=== PATIENT | female | born 1970 | race Caucasian/White ===

== ENCOUNTER 2016-03-26 15:26 | Inpatient (IN) | payer MEDICAID ==
[2016-03-26] MEDS ORDERED: IPRATROPIUM/ALBUTEROL 0.5-2.5 MG/3 ML AMPUL NEB ONE ×4 (15:42→16:33)
--- NOTE | 2016-03-26 15:42 | ER Document Report ---
ED Medical Screen (RME) - General Stated Complaint: DIFFICULTY BREATHING Time seen by provider: 15:38 Mode of Arrival: Ambulatory Information source: Patient Notes: 45 yo morbidly obese female non smoke, hypertensive, hypothyroid, prediabetes, started metformin 1000mg nightly since last week, c/o heavy chest last night with shortness of breath since this am. Started as cold in her head 2 weeks ago.. Seen by dr. shell who sent her here for chestxray and labs. No hx PE, CAD, astham, or COPD. TRAVEL OUTSIDE OF THE [place] IN LAST 30 DAYS: No - Related Data Allergies/Adverse Reactions: No Known Allergies Allergy (Verified 08/14/14 20:26) Past Medical History - Past Medical History Cardiac Medical History: Reports: Hx Hypertension Pulmonary Medical History: Reports: Hx Bronchitis Endocrine Medical History: Reports: Hx Hypothyroidism Psychiatric Medical History: Reports: Hx Depression Past Surgical History: Reports: Hx Adenoidectomy, Hx Myringotomy, Hx Tonsillectomy, Hx Tubal Ligation - Immunizations Immunizations up to date: Yes Hx Diphtheria, Pertussis, Tetanus Vaccination: Yes
[2016-03-26] MEDS ORDERED: ASPIRIN 81 MG TABLET, CHEWABLE PO ONE (15:43)
[2016-03-26 16:10] LABS: ABSOLUTE BASOPHILS # (AUTO) 0.1 10^3/uL (0.0-0.2); ABSOLUTE EOSINOPHILS # (AUTO) 0.2 10^3/uL (0.0-0.6); ABSOLUTE LYMPHOCYTES (AUTO) 2.1 10^3/uL (0.5-4.7); ABSOLUTE MONOCYTES (AUTO) 0.9 10^3/uL (0.1-1.4); ABSOLUTE NEUT (AUTO) 4.9 10^3/uL (1.7-8.2); BASOPHILS % (AUTO) 0.8 % (0-2); EOSINOPHILS % (AUTO) 2.3 % (0-6); HEMATOCRIT 43.9 % (36.0-47.0); HEMOGLOBIN 14.9 g/dL (12.0-15.5); HGB HCT DIFFERENCE 0.8; LYMPHOCYTES % (AUTO) 25.6 % (13-45); MEAN CORPUSCULAR HEMOGLOBIN 30.8 pg (27.0-33.4); MEAN CORPUSCULAR HGB CONC 33.9 g/dL (32.0-36.0); MEAN CORPUSCULAR VOLUME 91 fl (80-97); MONOCYTES % (AUTO) 10.9 % (3-13); RED BLOOD COUNT 4.84 10^6/uL (3.72-5.28); SEGMENTED NEUTROPHILS % (AUTO) 60.4 % (42-78); WHITE BLOOD COUNT 8.1 10^3/uL (4.0-10.5)
[2016-03-26 16:27] LABS: ALANINE AMINOTRANSFERASE 61 U/L (9-52); ALBUMIN 3.7 g/dL (3.5-5.0); ALKALINE PHOSPHATASE 88 U/L (38-126); ANION GAP 13 (5-19); ASPARTATE AMINO TRANSFERASE 46 U/L (14-36); BILIRUBIN,TOTAL 0.5 mg/dL (0.2-1.3); BLOOD UREA NITROGEN 24 mg/dL (7-20); CALCIUM 9.3 mg/dL (8.4-10.2); CARBON DIOXIDE 29 mmol/L (22-30); CHLORIDE 102 mmol/L (98-107); GLUCOSE 141 mg/dL (75-110); POTASSIUM 3.8 mmol/L (3.6-5.0); SODIUM 143.7 mmol/L (137-145)
[2016-03-26 16:28] LABS: CREATINE KINASE 53 U/L (30-135); TOTAL PROTEIN 7.6 g/dL (6.3-8.2)
[2016-03-26] MEDS ORDERED: PREDNISONE 20 MG TABLET PO ONE (16:32)
[2016-03-26 16:39] LABS: CREATINE KINASE MB 0.76 ng/mL (<4.55)
--- NOTE | 2016-03-26 16:39 | ER Document Report ---
ED General - General Chief Complaint: Breathing Difficulty Stated Complaint: DIFFICULTY BREATHING Mode of Arrival: Ambulatory Information source: Patient Notes: 45-year-old female presents with complaints of shortness of breath nonproductive cough that started yesterday. Patient notes she has had 2 weeks now of congestion or URI like symptoms, noted to have the shortness of breath yesterday which worsened today. Denies any current fevers or chills nausea vomiting or diarrhea TRAVEL OUTSIDE OF THE [place] IN LAST 30 DAYS: No - HPI Onset: Other - 2 week duration Onset/Duration: Persistent, Worse Quality of pain: No pain Severity: Mild Pain Level: 1 Associated symptoms: Body/muscle aches, Nonproductive cough, Shortness of breath Exacerbated by: Walking Relieved by: Denies Similar symptoms previously: No Recently seen / treated by doctor: No - Related Data Allergies/Adverse Reactions: No Known Allergies Allergy (Verified 08/14/14 20:26) Past Medical History - General Information source: Patient - Social History Smoking Status: Never Smoker Cigarette use (# per day): No Chew tobacco use (# tins/day): No Smoking Education Provided: No Family History: Reviewed & Not Pertinent, Arthritis, CAD, DM, Hypertension, Malignancy, Thyroid Disfunction Patient has suicidal ideation: No Patient has homicidal ideation: No - Past Medical History Cardiac Medical History: Reports: Hx Hypertension Pulmonary Medical History: Reports: Hx Bronchitis Endocrine Medical History: Reports: Hx Hypothyroidism Psychiatric Medical History: Reports: Hx Depression Past Surgical History: Reports: Hx Adenoidectomy, Hx Myringotomy, Hx Tonsillectomy, Hx Tubal Ligation - Immunizations Immunizations up to date: Yes Hx Diphtheria, Pertussis, Tetanus Vaccination: Yes Review of Systems - Review of Systems Notes: REVIEW OF SYSTEMS: CONSTITUTIONAL : Denies fever, chills, or sweats. Denies recent illness. EENT: Admits to sinus congestion CARDIOVASCULAR: Denies chest pain. Denies palpitations or racing or irregular heart beat. Denies ankle edema. RESPIRATORY: Admits to shortness breath difficulty breathing GASTROINTESTINAL: Denies abdominal pain or distention. Denies nausea, vomiting , or diarrhea. Denies blood in vomitus, stools, or per rectum. Denies black, tarry stools. Denies constipation. GENITOURINARY: Denies difficulty urinating, painful urination, burning, frequency, blood in urine, or discharge. FEMALE GENITOURINARY: Denies vaginal bleeding, heavy or abnormal periods, irregular periods. Denies vaginal discharge or odor. MUSCULOSKELETAL: Denies back or neck pain or stiffness. Denies joint pain or swelling. SKIN: Denies rash, lesions or sores. HEMATOLOGIC : Denies easy bruising or bleeding. LYMPHATIC: Denies swollen, enlarged glands. NEUROLOGICAL: Denies confusion or altered mental status. Denies passing out or loss of consciousness. Denies dizziness or lightheadedness. Denies headache. Denies weakness or paralysis or loss of use of either side. Denies problems with gait or speech. Denies sensory loss, numbness, or tingling. Denies seizures. PSYCHIATRIC: Denies anxiety or stress. Denies depression, suicidal ideation, or homicidal ideation. ALL OTHER SYSTEMS REVIEWED AND NEGATIVE. Dictation was performed using [employer] recognition software PHYSICAL EXAMINATION: GENERAL: Well-appearing, well-nourished and in no acute distress. HEAD: Atraumatic, normocephalic. EYES: Pupils equal round and reactive to light, extraocular movements intact, conjunctiva are normal. ENT: Nares patent, oropharynx clear without exudates. Moist mucous membranes. NECK: Normal range of motion, supple without lymphadenopathy LUNGS: Breath sounds clear to auscultation bilaterally and equal. No wheezes rales or rhonchi. Satting 94% on room air HEART: Regular rate and rhythm without murmurs ABDOMEN: Soft, nontender, nondistended abdomen. No guarding, no rebound. No masses appreciated. Female : deferred Musculoskeletal: Normal range of motion, no pitting or edema. No cyanosis. NEUROLOGICAL: Cranial nerves grossly intact. Normal speech, normal gait. Normal sensory, motor exams PSYCH: Normal mood, normal affect. SKIN: Warm, Dry, normal turgor, no rashes or lesions noted. Physical Exam - Vital signs Vitals: Temp Pulse Resp BP Pulse Ox 97.4 F 95 24 H 135/92 H 94 03/26/16 15:39 03/26/16 15:39 03/26/16 15:39 03/26/16 15:39 03/26/16 15:39 Course - Re-evaluation Re-evalutation: 03/26/16 16:39 Patient will be given 3 duo nebs, lab work imaging are pending. Patient will be ambulated to evaluate for exertional dyspnea 03/26/16 16:46 Patient denies any chest pain, however her troponin is noted to be above the negative range at 0.103, EKGs ordered immediately 03/26/16 17:05 EKG does note mild ischemic changes V4 V5 V6 I do not see any specific ST elevation, I will admit the patient to hospital service as pneumonia hypoxemia respiratory distress and coronary ischemia - Vital Signs Vital signs: Temp Pulse Resp BP Pulse Ox 97.4 F 95 24 H 135/92 H 94 03/26/16 15:39 03/26/16 15:39 03/26/16 15:39 03/26/16 15:39 03/26/16 16:30 - Laboratory Result Diagrams: 03/26/16 15:57 03/26/16 15:57 Laboratory results interpreted by me: 03/26/16 15:57 BUN 24 H Est GFR (Non-Af Amer) 54 L Glucose 141 H AST 46 H ALT 61 H - Diagnostic Test Radiology reviewed: Image reviewed, Reports reviewed - EKG Interpretation by Me EKG shows normal: Sinus rhythm, [place], Intervals, QRS Complexes When compared to previous EKG there are: Other - st depressions noted in V3-V6 Critical Care Note - Critical Care Note Total time excluding time spent on procedures (mins): 37 Comments: 37 minutes of critical care time spent in direct contact evaluating and reevaluating the patient, treating symptoms, reviewing labs and studies and speaking with family and consultants excluding any procedures Discharge - Discharge Clinical Impression: Ischemic heart disease, Hypoxemia Pneumonia Qualifiers: Pneumonia type: due to unspecified organism Laterality: right Lung location: lower lobe of lung Qualified Code(s): J18.1 - Lobar pneumonia, unspecified organism Condition: Stable Disposition: ADMITTED INPATIENT Admitting Provider: Hospitalist Unit Admitted: Telemetry
[2016-03-26 16:44] LABS: TROPONIN I 0.103 ng/mL
[2016-03-26] MEDS ORDERED: LEVOFLOXACIN 500 MG/D5W RTU 100 ML IV ONE (17:00)
--- NOTE | 2016-03-26 18:33 | PDOC H&P ---
History of Present Illness Admission Date/PCP: ANNE JIMENES Patient complains of: Shortness of breath History of Present Illness: CAROLANN STARKS is a 45 year old female presents with complaints of shortness of breath nonproductive cough that started yesterday. Patient notes she has had 2 weeks now of congestion or URI like symptoms, noted to have the shortness of breath yesterday which worsened today. Denies any current fevers or chills nausea vomiting or diarrhea Upon evaluation in the ED patient was found to be hypoxemic with O2 sat 93% on room air A chest x-ray showed an infiltrate EKG showed some mild ST depression on precordial leads new compared to an old EKG And the troponin was 0.1 Patient was admitted to telemetry unit for further evaluation and care Past Medical History Cardiac Medical History: Reports: Hypertension Pulmonary Medical History: Reports: Bronchitis Endocrine Medical History: Reports: Diabetes Mellitus Type 2, Hypothyroidism Psychiatric Medical History: Reports: Bipolar Disorder, Depression Past Surgical History Past Surgical History: Reports: Adenoidectomy, Tonsillectomy, Tubal Ligation Social History Information Source: Patient Smoking Status: Never Smoker Hx Recreational Drug Use: No Hx Prescription Drug Abuse: No - Advance Directive Resuscitation Status: Full Code Surrogate healthcare decision maker:: Mother Gina Family History Family History: Arthritis, CAD, DM, Hypertension, Malignancy, Thyroid Disfunction Parental Family History Reviewed: Yes - diabetes coronary artery disease hypertension malignancy Children Family History Reviewed: Yes - Bipolar disorder asthma Sibling(s) Family History Reviewed.: No Medication/Allergy Home Medications: Dextroamphetamine/Amphetamine [Adderall 20 mg Tablet] 20 mg PO DAILY 03/26/16 Enalapril Maleate [Enalapril Maleate] 5 mg PO DAILY 03/26/16 Fluoxetine HCl [Fluoxetine HCl] 20 mg PO DAILY 03/26/16 Hydrochlorothiazide [Hydrochlorothiazide] 25 mg PO DAILY 03/26/16 Levothyroxine Sodium [Synthroid] 125 mcg PO DAILY 03/26/16 Metformin HCl [Metformin HCl ER] 1,000 mg PO DAILY 03/26/16 Allergies/Adverse Reactions: No Known Allergies Allergy (Verified 08/14/14 20:26) Review of Systems Constitutional: ABSENT: chills, fever(s), headache(s), weight gain, weight loss Eyes: ABSENT: visual disturbances Ears: ABSENT: hearing changes Cardiovascular: PRESENT: as per HPI, dyspnea on exertion, orthropnea. ABSENT: chest pain, edema, palpitations Respiratory: PRESENT: as per HPI, cough, dyspnea. ABSENT: hemoptysis Gastrointestinal: ABSENT: abdominal pain, constipation, diarrhea, hematemesis, hematochezia, nausea, vomiting Genitourinary: ABSENT: dysuria, hematuria Musculoskeletal: ABSENT: joint swelling Integumentary: ABSENT: rash, wounds Neurological: ABSENT: abnormal gait, abnormal speech, confusion, dizziness, focal weakness, syncope Psychiatric: ABSENT: anxiety, depression, homidical ideation, suicidal ideation Endocrine: ABSENT: cold intolerance, heat intolerance, polydipsia, polyuria Hematologic/Lymphatic: ABSENT: easy bleeding, easy bruising Physical Exam Vital Signs: Temp Pulse Resp BP Pulse Ox 97.4 F 95 24 H 135/92 H 94 03/26/16 15:39 03/26/16 15:39 03/26/16 16:30 03/26/16 15:39 03/26/16 16:30 Intake & Output 03/25/16 03/26/16 03/27/16 00:59 00:59 00:59 Weight 177.4 kg General appearance: PRESENT: no acute distress, morbidly obese, well-developed, well-nourished Head exam: PRESENT: atraumatic, normocephalic Eye exam: PRESENT: conjunctiva pink, EOMI, PERRLA. ABSENT: scleral icterus Ear exam: PRESENT: normal external ear exam Mouth exam: PRESENT: moist, tongue midline Neck exam: ABSENT: carotid bruit, JVD, lymphadenopathy, thyromegaly Respiratory exam: PRESENT: decreased breath sounds, rhonchi, wheezes. ABSENT: rales Cardiovascular exam: PRESENT: RRR. ABSENT: diastolic murmur, rubs, systolic murmur Pulses: PRESENT: normal dorsalis pedis pul Vascular exam: PRESENT: normal capillary refill GI/Abdominal exam: PRESENT: normal bowel sounds, soft. ABSENT: distended, guarding, mass, organolmegaly, rebound, tenderness Rectal exam: PRESENT: deferred Extremities exam: PRESENT: full ROM. ABSENT: calf tenderness, clubbing, pedal edema Neurological exam: PRESENT: alert, awake, oriented to person, oriented to place , oriented to time, oriented to situation, CN II-XII grossly intact. ABSENT: motor sensory deficit Psychiatric exam: PRESENT: appropriate affect, normal mood. ABSENT: homicidal ideation, suicidal ideation Skin exam: PRESENT: dry, intact, warm. ABSENT: cyanosis, rash Results Laboratory Results: 03/26/16 15:57 03/26/16 15:57 03/26/16 03/26/16 15:57 15:57 WBC 8.1 RBC 4.84 Hgb 14.9 Hct 43.9 MCV 91 MCH 30.8 MCHC 33.9 RDW 14.0 Plt Count 157 Seg Neutrophils % 60.4 Lymphocytes % 25.6 Monocytes % 10.9 Eosinophils % 2.3 Basophils % 0.8 Absolute Neutrophils 4.9 Absolute Lymphocytes 2.1 Absolute Monocytes 0.9 Absolute Eosinophils 0.2 Absolute Basophils 0.1 Sodium 143.7 Potassium 3.8 Chloride 102 Carbon Dioxide 29 Anion Gap 13 BUN 24 H Creatinine 1.10 Est GFR ( Amer) > 60 Est GFR (Non-Af Amer) 54 L Glucose 141 H Calcium 9.3 Total Bilirubin 0.5 AST 46 H ALT 61 H Alkaline Phosphatase 88 Total Protein 7.6 Albumin 3.7 03/26/16 03/26/16 15:57 15:57 Creatine Kinase 53 CK-MB (CK-2) 0.76 Troponin I 0.103 EKG Comments: Normal sinus rhythm Every 2-[address] depression 1 mm in V4 V5 and V6 Impressions: Chest X-Ray 03/26/16 15:42 IMPRESSION: Early pneumonia right lower lobe. Assessment & Plan - Diagnosis (1) Morbid obesity with BMI of 50.0-59.9, adult Is this a current diagnosis for this admission?: Yes (2) Elevated troponin Is this a current diagnosis for this admission?: YesPlan: We will cycle troponins Patient may have an acute non-STEMI Noted that patient does have EKG changes as compared to an EKG performed in July 2015 We will treat the patient with Lipitor aspirin Lovenox at 1 mg per KG every 12 Elevated troponin may occur in acute pulmonary embolism A CTA of the chest be performed tonight (3) Cardiac ischemia Is this a current diagnosis for this admission?: YesPlan: Stress test be indicated when patient's condition is improved (4) Hypoxemia Is this a current diagnosis for this admission?: YesPlan: Acute hypoxemic respiratory failure; continue O2 supplementation Respiratory failure likely to be secondary to pneumonia (5) Pneumonia Qualifiers: Pneumonia type: due to unspecified organism Laterality: right Lung location: lower lobe of lung Qualified Code(s): J18.1 - Lobar pneumonia, unspecified organism Plan: Right lower lobe pneumonia continue Levaquin IV We'll obtain sputum for culture Continue nebs and steroids - Time Time Spent with patient: Patient was admitted to telemetry as an inpatient Time Spent: 50 to 70 Minutes - Inpatient Certification Based on my medical assessment, after consideration of the patient's comorbidities, presenting symptoms, or acuity I expect that the services needed warrant INPATIENT care.: Yes I certify that my determination is in accordance with my understanding of Medicare's requirements for reasonable and necessary INPATIENT services [42 CFR 412.3e].: Yes Medical Necessity: Need Close Monitoring Due to Risk of Patient Decompensation - I Not try When she did well. We document tried many times to whether we can NOW I TRIED TIME, Need For Continuous Telemetry Monitoring, Need for Nebulizer Therapy and Monitoring of Response
[2016-03-26] MEDS ORDERED: ASPIRIN 325 MG TABLET, ENT COATED PO ONE (19:00)
[2016-03-26] MEDS ORDERED: ENOXAPARIN SODIUM INJ 150 MG/1 ML DISP.SYRIN SUBCUT ONE (19:15)
[2016-03-26] MEDS ORDERED: ENALAPRIL MALEATE 5 MG TABLET PO ONE (19:15)
[2016-03-26 19:48] LABS: PROTHROMBIN TIME 13.1 SEC (11.4-15.4)
[2016-03-26] MEDS ORDERED: METOPROLOL TARTRATE PF/INJ 5 MG/5 ML SDV IV ONE (21:16)
--- NOTE | 2016-03-26 21:39 | EKG REPORT ---
SEVERITY:- ABNORMAL ECG - SINUS TACHYCARDIA PROBABLE INFERIOR INFARCT, AGE INDETERMINATE : Confirmed by: Lynette Boswell 26-Mar-2016 21:38:29
--- NOTE | 2016-03-26 21:43 | EKG REPORT ---
SEVERITY:- BORDERLINE ECG - SINUS RHYTHM BORDERLINE INFERIOR Q WAVES : Confirmed by: Lynette Boswell 26-Mar-2016 21:42:57
[2016-03-26] MEDS ORDERED: ATORVASTATIN CALCIUM 80 MG TABLET PO SCH (22:00)
[2016-03-26] MEDS: FAMOTIDINE 20 MG TABLET PO SCH (23:16)
[2016-03-27 07:04] LABS: ABSOLUTE BASOPHILS # (AUTO) 0.1 10^3/uL (0.0-0.2); ABSOLUTE LYMPHOCYTES (AUTO) 1.8 10^3/uL (0.5-4.7); ABSOLUTE MONOCYTES (AUTO) 0.5 10^3/uL (0.1-1.4); ABSOLUTE NEUT (AUTO) 7.9 10^3/uL (1.7-8.2); BASOPHILS % (AUTO) 0.6 % (0-2); HEMATOCRIT 43.3 % (36.0-47.0); HEMOGLOBIN 15.1 g/dL (12.0-15.5); LYMPHOCYTES % (AUTO) 17.2 % (13-45); MEAN CORPUSCULAR HEMOGLOBIN 31.3 pg (27.0-33.4); MEAN CORPUSCULAR HGB CONC 34.7 g/dL (32.0-36.0); MEAN CORPUSCULAR VOLUME 90 fl (80-97); MONOCYTES % (AUTO) 5.3 % (3-13); RED BLOOD COUNT 4.81 10^6/uL (3.72-5.28); RED CELL DISTRIBUTION WIDTH 14.4 % (11.5-14.0); SEGMENTED NEUTROPHILS % (AUTO) 76.9 % (42-78); WHITE BLOOD COUNT 10.3 10^3/uL (4.0-10.5)
[2016-03-27 07:25] LABS: ALANINE AMINOTRANSFERASE 47 U/L (9-52); ALBUMIN 3.7 g/dL (3.5-5.0); ALKALINE PHOSPHATASE 98 U/L (38-126); ANION GAP 13 (5-19); ASPARTATE AMINO TRANSFERASE 41 U/L (14-36); BILIRUBIN,TOTAL 0.4 mg/dL (0.2-1.3); BLOOD UREA NITROGEN 25 mg/dL (7-20); CALCIUM 9.6 mg/dL (8.4-10.2); CARBON DIOXIDE 24 mmol/L (22-30); CHLORIDE 102 mmol/L (98-107); CREATININE RESULT 0.88 mg/dL (0.52-1.25); Direct HDL 66 mg/dL (>40); GLUCOSE 187 mg/dL (75-110); POTASSIUM 4.5 mmol/L (3.6-5.0); SODIUM 138.8 mmol/L (137-145); TOTAL PROTEIN 7.7 g/dL (6.3-8.2); TRIGLYCERIDES 101 mg/dL (<150)
[2016-03-27 07:36] LABS: DIRECT LDL 128 mg/dL (<100)
[2016-03-27] MEDS ORDERED: ENOXAPARIN SODIUM INJ 40 MG/0.4 ML DISP.SYRIN SUBCUT SCH (08:00)
--- NOTE | 2016-03-27 08:56 | EKG REPORT ---
SEVERITY:- BORDERLINE ECG - SINUS RHYTHM PROBABLE LEFT ATRIAL ABNORMALITY : Confirmed by: Lynette Boswell 27-Mar-2016 08:55:43
[2016-03-27] MEDS ORDERED: PREDNISONE 20 MG TABLET PO SCH (10:00)
[2016-03-27] MEDS ORDERED: ASPIRIN 325 MG TABLET, ENT COATED PO SCH (10:00)
[2016-03-27] MEDS ORDERED: LEVOTHYROXINE SODIUM 0.05 MG TABLET PO SCH (10:00)
[2016-03-27] MEDS: ENOXAPARIN SODIUM INJ 150 MG/1 ML DISP.SYRIN SUBCUT SCH ×2 (10:40→22:22)
[2016-03-27] MEDS: ENALAPRIL MALEATE 5 MG TABLET PO SCH ×2 (10:40→17:24)
[2016-03-27] MEDS: LEVOFLOXACIN 750 MG TABLET PO SCH (10:42)
[2016-03-27] MEDS: HYDROCHLOROTHIAZIDE 25 MG TABLET PO SCH (10:43)
[2016-03-27] MEDS: FLUOXETINE HCL 20 MG CAPSULE PO SCH (10:43)
[2016-03-27] MEDS: FAMOTIDINE 20 MG TABLET PO SCH ×2 (10:44→22:22)
--- NOTE | 2016-03-27 15:39 | PDOC PROGRESS REPORT ---
Subjective Progress Note for:: 03/27/16 Subjective:: Patient is still dyspneic but appears more comfortable; patient is still hypoxemic with an O2 sat of 92% on room air No chest pain CTA of the chest done last evening showed acute pulmonary emboli Lovenox has been initiated on admission Physical Exam Vital Signs: Temp Pulse Resp BP Pulse Ox 97.2 F 70 19 129/78 H 92 03/27/16 03:37 03/27/16 07:00 03/27/16 03:37 03/27/16 03:37 03/27/16 03:37 Intake & Output 03/26/16 03/27/16 03/28/16 00:59 00:59 00:59 Intake Total 550 Balance 550 Weight 176.2 kg 176.2 kg General appearance: PRESENT: no acute distress, morbidly obese Head exam: PRESENT: atraumatic Eye exam: PRESENT: conjunctiva pink, EOMI, PERRLA. ABSENT: scleral icterus Neck exam: ABSENT: carotid bruit, JVD, lymphadenopathy, thyromegaly Respiratory exam: PRESENT: clear to auscultation [place]. ABSENT: rales, rhonchi, wheezes Cardiovascular exam: PRESENT: RRR. ABSENT: diastolic murmur, rubs, systolic murmur Pulses: PRESENT: normal dorsalis pedis pul GI/Abdominal exam: PRESENT: normal bowel sounds, soft. ABSENT: distended, guarding, mass, organolmegaly, rebound, tenderness Extremities exam: PRESENT: full ROM. ABSENT: calf tenderness, clubbing, pedal edema Neurological exam: PRESENT: alert, awake, oriented to person, oriented to place , oriented to time, oriented to situation, CN II-XII grossly intact. ABSENT: motor sensory deficit Results Laboratory Results: 03/27/16 06:33 03/27/16 06:33 03/26/16 03/27/16 03/27/16 19:30 06:33 06:33 WBC 10.3 RBC 4.81 Hgb 15.1 Hct 43.3 MCV 90 MCH 31.3 MCHC 34.7 RDW 14.4 H Plt Count 169 Seg Neutrophils % 76.9 Lymphocytes % 17.2 Monocytes % 5.3 Eosinophils % 0.0 Basophils % 0.6 Absolute Neutrophils 7.9 Absolute Lymphocytes 1.8 Absolute Monocytes 0.5 Absolute Eosinophils 0.0 Absolute Basophils 0.1 Sodium 138.8 Potassium 4.5 Chloride 102 Carbon Dioxide 24 Anion Gap 13 BUN 25 H Creatinine 0.88 Est GFR ( Amer) > 60 Est GFR (Non-Af Amer) > 60 Glucose 187 H Calcium 9.6 Total Bilirubin 0.4 AST 41 H ALT 47 Alkaline Phosphatase 98 Total Protein 7.7 Albumin 3.7 Triglycerides 101 Cholesterol 216.50 H LDL Cholesterol Direct 128 H VLDL Cholesterol 20.0 HDL Cholesterol 66 TSH 4.65 03/27/16 06:33 WBC RBC Hgb Hct MCV MCH MCHC RDW Plt Count Seg Neutrophils % Lymphocytes % Monocytes % Eosinophils % Basophils % Absolute Neutrophils Absolute Lymphocytes Absolute Monocytes Absolute Eosinophils Absolute Basophils Sodium Potassium Chloride Carbon Dioxide Anion Gap BUN Creatinine Est GFR ( Amer) Est GFR (Non-Af Amer) Glucose Calcium Total Bilirubin AST ALT Alkaline Phosphatase Total Protein Albumin Triglycerides Cholesterol LDL Cholesterol Direct VLDL Cholesterol HDL Cholesterol TSH 1.58 03/26/16 03/27/16 03/27/16 19:30 02:02 06:33 Troponin I 0.259 0.207 NT-Pro-B Natriuret Pep 532 H Impressions: Chest X-Ray 03/26/16 15:42 IMPRESSION: Early pneumonia right lower lobe. Chest/Abdomen CTA 03/26/16 18:06 IMPRESSION: Positive for pulmonary emboli. Assessment & Plan - Diagnosis (1) Morbid obesity with BMI of 50.0-59.9, adult Is this a current diagnosis for this admission?: Yes (2) Elevated troponin Is this a current diagnosis for this admission?: YesPlan: elevated troponin and EKG changes related to previous pulmonary emboli ; no need for further cardiac testing (3) Cardiac ischemia Is this a current diagnosis for this admission?: YesPlan: ST depression depression on precordial leads has normalized as patient's heart rate is slower patient certainly would benefit from cardiac workup has outpatient when clinically stable (4) Hypoxemia Is this a current diagnosis for this admission?: YesPlan: Secondary to pulmonary embolism still persistent Patient should be evaluated for portable O2 at home prior to discharge (5) Pneumonia Qualifiers: Pneumonia type: due to unspecified organism Laterality: right Lung location: lower lobe of lung Qualified Code(s): J18.1 - Lobar pneumonia, unspecified organism Is this a current diagnosis for this admission?: YesPlan: Continue Levaquin (6) Acute pulmonary embolism Qualifiers: Pulmonary embolism type: other Is this a current diagnosis for this admission?: YesPlan: Continue anticoagulation with Lovenox Patient may be switched to xarelto in am - Time Time Spent with patient: Patient may be discharged in 24 hours if she remains stable Time Spent with patient: 25-34 minutes - Inpatient Certification Based on my medical assessment, after consideration of the patient's comorbidities, presenting symptoms, or acuity I expect that the services needed warrant INPATIENT care.: Yes I certify that my determination is in accordance with my understanding of Medicare's requirements for reasonable and necessary INPATIENT services [42 CFR 412.3e].: Yes Medical Necessity: Need For Continuous Telemetry Monitoring
[2016-03-27 19:10] LABS: APPEARANCE,URINE CLEAR; BILIRUBIN,URINE NEGATIVE (NEGATIVE); GLUCOSE, URINE 150 mg/dL (NEGATIVE); KETONES,URINE NEGATIVE (NEGATIVE); LEUKOCYTE ESTERASE,URINE NEGATIVE (NEGATIVE); NITRITE,URINE NEGATIVE (NEGATIVE); PROTEIN,URINE NEGATIVE (NEGATIVE); URINE SPECIFIC GRAVITY 1.016; UROBILINOGEN,URINE NEGATIVE mg/dL (<2.0)
[2016-03-27] MEDS ORDERED: ATORVASTATIN CALCIUM 10 MG TABLET PO SCH (22:00)
[2016-03-27] MEDS ORDERED: ATORVASTATIN CALCIUM 80 MG TABLET PO SCH (22:00)
[2016-03-28] MEDS ORDERED: LEVOTHYROXINE SODIUM 0.025 MG TABLET PO SCH (10:00)
[2016-03-28] MEDS ORDERED: PREDNISONE 20 MG TABLET PO SCH (10:00)
[2016-03-28] MEDS ORDERED: LEVOTHYROXINE SODIUM 0.1 MG TABLET PO SCH (10:00)
[2016-03-28] MEDS ORDERED: ASPIRIN 325 MG TABLET, ENT COATED PO SCH (10:00)
[2016-03-28] MEDS: FAMOTIDINE 20 MG TABLET PO SCH (10:19)
[2016-03-28] MEDS: HYDROCHLOROTHIAZIDE 25 MG TABLET PO SCH (10:19)
[2016-03-28] MEDS: FLUOXETINE HCL 20 MG CAPSULE PO SCH (10:19)
[2016-03-28] MEDS: LEVOFLOXACIN 750 MG TABLET PO SCH (10:20)
[2016-03-28] MEDS: ENOXAPARIN SODIUM INJ 150 MG/1 ML DISP.SYRIN SUBCUT SCH (10:21)
[2016-03-28] MEDS: ENALAPRIL MALEATE 5 MG TABLET PO SCH (10:21)
[2016-03-28 11:07] VITALS: BP 127/73
--- NOTE | 2016-03-28 14:53 | PDOC DISCHARGE SUMMARY ---
General - Admit/Disc Date/PCP Admission Date/Primary Care Provider: 03/26/16 18:08 ANNE JIMENES Discharge Date: 03/28/16 - Discharge Diagnosis (1) Acute pulmonary embolism Is this a current diagnosis for this admission?: YesSummary: Patient quickly weaned off supplemental O2 and remained stable for at least the last 24 hours. She has tolerated anticoagulation without any bleeding consultations. She is agreeable to starting as a result of therapy at 15 mg twice a day for 3 weeks and then 20 mg daily thereafter. She was counseled on signs and symptoms to watch for and adverse reactions from this medication. All questions were asked and answered to the best my ability. She expressed no concerns about going home today. - Additional Information Resuscitation Status: Full Code Discharge Diet: Cardiac Discharge Activity: Activity As Tolerated Home Medications: Dextroamphetamine/Amphetamine [Adderall 20 mg Tablet] 20 mg PO DAILY 03/26/16 Fluoxetine HCl 20 mg PO DAILY 03/26/16 Hydrochlorothiazide 25 mg PO DAILY 03/26/16 Metformin HCl [Metformin HCl ER] 1,000 mg PO DAILY 03/26/16 Atorvastatin Calcium [Lipitor 10 mg Tablet] 10 mg PO QHS #30 tablet 03/28/16 Enalapril Maleate [Vasotec 5 mg Tablet] 5 mg PO BID #60 tablet 03/28/16 Levofloxacin [Levaquin 750 mg Tablet] 750 mg PO DAILY 5 Days 03/28/16 Levothyroxine Sodium [Synthroid 0.025 mg Tablet] 0.025 mg PO DAILY #30 tablet Prednisone [Deltasone 20 mg Tablet] 40 mg PO DAILY 5 Days 03/28/16 Rivaroxaban [Xarelto] 15 mg PO BID 21 Days 03/28/16 Rivaroxaban [Xarelto] 20 mg PO DAILY #30 tablet 03/28/16 History of Present Illness Patient complains of: shortness of breath History of Present Illness: CAROLANN STARKS is a 45 year old female Hospital Course Hospital Course: CAROLANN STARKS is a 45 year old female presents with complaints of shortness of breath nonproductive cough that started yesterday. Patient notes she has had 2 weeks now of congestion or URI like symptoms, noted to have the shortness of breath yesterday which worsened today. Denies any current fevers or chills nausea vomiting or diarrhea Upon evaluation in the ED patient was found to be hypoxemic with O2 sat 93% on room air A chest x-ray showed an infiltrate EKG showed some mild ST depression on precordial leads new compared to an old EKG And the troponin was 0.1 Patient was admitted to telemetry unit for further evaluation and care Physical Exam Vital Signs: Temp Pulse Resp BP Pulse Ox 97.5 F 65 20 127/73 H 98 03/28/16 11:33 03/28/16 11:33 03/28/16 11:33 03/28/16 11:33 03/28/16 11:33 Intake & Output 03/27/16 03/28/16 03/29/16 06:59 06:59 06:59 Intake Total 550 2170 360 Output Total 4 Balance 550 2166 360 Weight 176.2 kg 176 kg Results Laboratory Results: 03/27/16 06:33 03/27/16 06:33 03/27/16 18:47 Urine Color STRAW Urine Appearance CLEAR Urine pH 5.0 Ur Specific Bath 1.016 Urine Protein NEGATIVE Urine Glucose (UA) 150 H Urine Ketones NEGATIVE Urine Blood NEGATIVE Urine Nitrite NEGATIVE Ur Leukocyte Esterase NEGATIVE Urine WBC (Auto) 1 Urine RBC (Auto) 0 03/26/16 03/27/16 03/27/16 19:30 02:02 06:33 Troponin I 0.259 0.207 NT-Pro-B Natriuret Pep 532 H Impressions: Chest X-Ray 03/26/16 15:42 IMPRESSION: Early pneumonia right lower lobe. Chest/Abdomen CTA 03/26/16 18:06 IMPRESSION: Positive for pulmonary emboli. Venous Doppler Study 03/27/16 12:12 IMPRESSION: NO EVIDENCE DVT OR SVT IN EITHER LEG.
[2016-03-28 16:08] LABS: URINE BARBITURATES SCREEN NEGATIVE; URINE METHADONE SCREEN NEGATIVE; URINE PHENCYCLIDINE SCREEN NEGATIVE
== END 2016-03-28 11:39 | disposition home or self-care (01) | DRG 175 ==
LOC: ER 15:26 → EH 18:08 → 5 20:51
PROVIDERS: ADMIT Emergency Medicine; ATTEND Emergency Medicine
DX: I26.99 Other pulmonary embolism without acute cor pulmonale (principal); J18.9 Pneumonia, unspecified organism; J96.01 Acute respiratory failure with hypoxia; Z68.44 Body mass index [BMI] 60.0-69.9, adult; I10 Essential (primary) hypertension; E11.9 Type 2 diabetes mellitus without complications; E03.9 Hypothyroidism, unspecified; R74.8 Abnormal levels of other serum enzymes; E66.01 Morbid (severe) obesity due to excess calories; F31.9 Bipolar disorder, unspecified; Z83.3 Family history of diabetes mellitus; Z82.49 Family history of ischemic heart disease and other diseases of the circulatory system; Z80.9 Family history of malignant neoplasm, unspecified; Z98.51 Tubal ligation status
CPT/HCPCS: 36415; 71020; 71275; 80053; 80061; 80307; 81001; 82550; 82553; 83036; 83880; 84443; 84484; 85025; 85610; 85730; 87040; 93005; 93010; 93970; 96365; 99291; J1956; J3490; J7512; J7620

== ENCOUNTER 2016-03-29 12:29 | Emergency (ER) | payer MEDICAID ==
--- NOTE | 2016-03-29 13:43 | EKG REPORT ---
SEVERITY:- ABNORMAL ECG - SINUS RHYTHM NONSPECIFIC INTRAVENTRICULAR CONDUCTION DELAY BORDERLINE INFERIOR Q WAVES : Confirmed by: Jodi Jaramillo MD 29-Mar-2016 13:43:09
[2016-03-29 13:50] LABS: ABSOLUTE LYMPHOCYTES (AUTO) 2.1 10^3/uL (0.5-4.7); ABSOLUTE MONOCYTES (AUTO) 0.6 10^3/uL (0.1-1.4); ABSOLUTE NEUT (AUTO) 9.9 10^3/uL (1.7-8.2); BASOPHILS % (AUTO) 0.3 % (0-2); HEMATOCRIT 45.3 % (36.0-47.0); HEMOGLOBIN 15.3 g/dL (12.0-15.5); HGB HCT DIFFERENCE 0.6; LYMPHOCYTES % (AUTO) 16.7 % (13-45); MEAN CORPUSCULAR HEMOGLOBIN 30.5 pg (27.0-33.4); MEAN CORPUSCULAR HGB CONC 33.8 g/dL (32.0-36.0); MEAN CORPUSCULAR VOLUME 90 fl (80-97); MONOCYTES % (AUTO) 4.5 % (3-13); RED BLOOD COUNT 5.02 10^6/uL (3.72-5.28); RED CELL DISTRIBUTION WIDTH 14.3 % (11.5-14.0); SEGMENTED NEUTROPHILS % (AUTO) 78.5 % (42-78); WHITE BLOOD COUNT 12.6 10^3/uL (4.0-10.5)
[2016-03-29 13:59] LABS: ALANINE AMINOTRANSFERASE 33 U/L (9-52); ALBUMIN 4.2 g/dL (3.5-5.0); ALKALINE PHOSPHATASE 84 U/L (38-126); ANION GAP 14 (5-19); ASPARTATE AMINO TRANSFERASE 24 U/L (14-36); BILIRUBIN,TOTAL 0.7 mg/dL (0.2-1.3); BLOOD UREA NITROGEN 28 mg/dL (7-20); CALCIUM 9.4 mg/dL (8.4-10.2); CARBON DIOXIDE 27 mmol/L (22-30); CHLORIDE 100 mmol/L (98-107); CREATINE KINASE 29 U/L (30-135); CREATININE RESULT 1.09 mg/dL (0.52-1.25); GLUCOSE 196 mg/dL (75-110); POTASSIUM 3.7 mmol/L (3.6-5.0); SODIUM 141.2 mmol/L (137-145); TOTAL PROTEIN 7.7 g/dL (6.3-8.2)
[2016-03-29 14:21] LABS: CREATINE KINASE MB 0.48 ng/mL (<4.55); TROPONIN I < 0.012 ng/mL
--- NOTE | 2016-03-29 14:43 | ER Document Report ---
ED Respiratory Problem - General Chief Complaint: Shortness Of Breath Stated Complaint: TROUBLE BREATHING Notes: This is a 45-year-old female was recently hospitalized for pneumonia and PEs who was just discharged last night. She states this morning was her first time taking her Xarelto and prednisone together. She had been on Lovenox [facility]. She states a few minutes after taking the medications this morning she felt as if her heart was racing and she was flushed. She states she is mildly short of breath. Symptoms have subsided spontaneously and she states she is feeling pretty much at her baseline at this time. She does state she still has some mild shortness of breath but it is improved from when she was in the hospital. She states she did not want to come to the hospital by her mother made her call EMS TRAVEL OUTSIDE OF THE [place] IN LAST 30 DAYS: No - Related Data Allergies/Adverse Reactions: No Known Allergies Allergy (Verified 08/14/14 20:26) Past Medical History - General Information source: Patient - Social History Smoking Status: Unknown if Ever Smoked Frequency of alcohol use: None Drug Abuse: None Lives with: Family Family History: Arthritis, CAD, DM, Hypertension, Malignancy, Thyroid Disfunction - Past Medical History Cardiac Medical History: Reports: Hx Hypertension Pulmonary Medical History: Reports: Hx Bronchitis Endocrine Medical History: Reports: Hx Diabetes Mellitus Type 2, Hx Hypothyroidism Psychiatric Medical History: Reports: Hx Bipolar Disorder, Hx Depression Past Surgical History: Reports: Hx Adenoidectomy, Hx Myringotomy, Hx Tonsillectomy, Hx Tubal Ligation - Immunizations Immunizations up to date: Yes Hx Diphtheria, Pertussis, Tetanus Vaccination: Yes Review of Systems - Review of Systems Constitutional: denies: Fever EENT: denies: Throat pain, Difficulty swallowing Cardiovascular: See HPI. denies: Syncope Respiratory: See HPI Gastrointestinal: denies: Vomiting Genitourinary: denies: Flank pain Musculoskeletal: denies: Ankle swelling Skin: denies: Rash Neurological/Psychological: denies: Weakness, Numbness, Tingling Physical Exam - Vital signs Vitals: Resp Pulse Ox 19 98 03/29/16 12:33 03/29/16 12:33 - Notes Notes: GENERAL: Pleasant, talkative obese female in no acute respiratory distress, vital signs are normal HEAD: Atraumatic, normocephalic. EYES: Pupils equal round and reactive to light, extraocular movements intact, sclera anicteric, conjunctiva are normal. ENT: nares patent, oropharynx clear without exudates. Moist mucous membranes. NECK: Normal range of motion, supple without lymphadenopathy or JVD. LUNGS: Breath sounds clear to auscultation bilaterally and equal. No wheezes rales or rhonchi. HEART: Regular rate and rhythm without murmurs, rubs or gallops. ABDOMEN: Soft, nontender, normoactive bowel sounds. No guarding, no rebound. No masses appreciated. EXTREMITIES: Normal range of motion, no pitting or edema. No clubbing or cyanosis. NEUROLOGICAL: Cranial nerves II through XII grossly intact. Normal speech, normal gait. PSYCH: Normal mood, normal affect. SKIN: Warm, Dry, normal turgor, no rashes or lesions noted. Course - Re-evaluation Re-evalutation: 03/29/16 19:43 Patient is hemodynamically stable here. She is not hypoxic. She is not tachycardic. She is normotensive. She is well-appearing and talkative. She states she is feeling better. Labs are reassuring. Chest x-ray is improved from when she was the hospital. Patient is comfortable going home on her current medication regimen. I do not suspect that she's had any further new significant PE today. - Vital Signs Vital signs: Temp Pulse Resp BP Pulse Ox 97.5 F 73 19 125/81 96 03/29/16 12:35 03/29/16 12:35 03/29/16 13:02 03/29/16 14:02 03/29/16 14:02 - Laboratory Result Diagrams: 03/29/16 12:35 03/29/16 12:35 Laboratory results interpreted by me: 03/29/16 03/29/16 12:35 12:35 WBC 12.6 H RDW 14.3 H Seg Neutrophils % 78.5 H Absolute Neutrophils 9.9 H BUN 28 H Est GFR (Non-Af Amer) 55 L Glucose 196 H Creatine Kinase 29 L Discharge - Discharge Clinical Impression: Heart palpitations Condition: Good Disposition: HOME, SELF-CARE Additional Instructions: your labs are stable and chest x ray shows interval improvement in pneumonia. Your vital signs are stable. Monitor your symptoms at home and return if you have any persistent shortness of breath, feel faint, have unusual pain, develop a fever or have any new concerns. Referrals: ANNE JIMENES [Primary Care Provider] - Follow up as needed
[2016-03-29 14:59] VITALS: BP 125/81
== END 2016-03-29 15:08 | disposition home or self-care (01) ==
LOC: ER 12:29
DX: R00.2 Palpitations (principal); I26.99 Other pulmonary embolism without acute cor pulmonale; J18.9 Pneumonia, unspecified organism; I10 Essential (primary) hypertension; E11.9 Type 2 diabetes mellitus without complications
CPT/HCPCS: 36415; 71020; 80053; 82550; 82553; 84484; 85025; 93005; 93010; 99285

== ENCOUNTER 2016-04-07 03:06 | Emergency (ER) | payer MEDICAID ==
--- NOTE | 2016-04-07 04:15 | ER Document Report ---
ED General - General Time seen by provider: 04:10 Mode of Arrival: Ambulatory Information source: Patient TRAVEL OUTSIDE OF THE [place] IN LAST 30 DAYS: No - HPI Onset: Other <JACKY CHAVARRIA - Last Filed: 04/07/16 04:39> <JUAN JOSE FRANKEL - Last Filed: 04/07/16 05:47> - General Chief Complaint: Cough Stated Complaint: COUGH Notes: Patient is a 45-year-old female presenting to the emergency department with complaints of cough, back pain, and chest pain. Patient states that she recently was admitted to the hospital for pneumonia and an increased troponin level. Patient states that while in the hospital they found blood clots in her lungs and was placed on a blood thinner. Patient states that she is also taking a steroid since she was in the hospital and finished taking her steroid on Sunday. Patient's states that her cough went away but has now returned patient states that she has coughed so much that she is having some back pain that radiates on the left side of her back and moves around her shoulder to her throat. Patient states her pain is exacerbated with movement or deep breathing. Patient states that it hurts to breathe and non-that she is short of breath. Patient's has been coughing for about 2+ weeks. Patient with history of hypertension and hypothyroidism. Patient has no known allergies. ( JACKY CHAVARRIA) - Related Data Allergies/Adverse Reactions: No Known Allergies Allergy (Verified 08/14/14 20:26) Past Medical History - General Information source: Patient Last Menstrual Period: 03/26/16 - Social History Smoking Status: Never Smoker Cigarette use (# per day): No Chew tobacco use (# tins/day): No Frequency of alcohol use: None Drug Abuse: None Family History: Reviewed & Not Pertinent, Arthritis, CAD, DM, Hypertension, Malignancy, Thyroid Disfunction - Past Medical History Cardiac Medical History: Reports: Hx Hypertension Pulmonary Medical History: Reports: Hx Bronchitis Endocrine Medical History: Reports: Hx Diabetes Mellitus Type 2, Hx Hypothyroidism Psychiatric Medical History: Reports: Hx Bipolar Disorder, Hx Depression Past Surgical History: Reports: Hx Adenoidectomy, Hx Myringotomy, Hx Tonsillectomy, Hx Tubal Ligation - Immunizations Immunizations up to date: Yes Hx Diphtheria, Pertussis, Tetanus Vaccination: Yes <JACKY CHAVARRIA - Last Filed: 04/07/16 04:39> Review of Systems - Review of Systems Constitutional: No symptoms reported EENT: No symptoms reported Cardiovascular: See HPI, Chest pain Respiratory: See HPI, Cough Gastrointestinal: No symptoms reported Genitourinary: No symptoms reported Female Genitourinary: No symptoms reported Musculoskeletal: See HPI, Back pain Skin: No symptoms reported Hematologic/Lymphatic: No symptoms reported Neurological/Psychological: No symptoms reported -: Yes All other systems reviewed and negative <JACKY CHAVARRIA - Last Filed: 04/07/16 04:39> Physical Exam - Vital signs Interpretation: Normal - General General appearance: Appears well, Alert In distress: Mild - HEENT Head: Normocephalic, Atraumatic Eyes: Normal Pupils: PERRL Mucous membranes: Normal - Respiratory Respiratory status: No respiratory distress Chest status: Nontender Breath sounds: Normal. No: Wheezing Chest palpation: Normal - Cardiovascular Rhythm: Regular Heart sounds: Normal auscultation Murmur: Yes - Abdominal Inspection: Obese Distension: No distension Bowel sounds: Normal Tenderness: Nontender Organomegaly: No organomegaly - Back Back: Normal, Tender - tenderness to palpation over the left medial scalpula - Extremities General upper extremity: Normal inspection, Normal ROM, Normal strength General lower extremity: Normal inspection, Normal ROM, Normal strength - Neurological Neuro grossly intact: Yes Cognition: Normal Orientation: AAOx4 [place] Coma Scale Eye Opening: Spontaneous [place] Coma Scale Verbal: Oriented [place] Coma Scale Motor: Obeys Commands [place] Coma Scale Total: 15 Speech: Normal - Psychological Associated symptoms: Normal affect, Normal mood - Skin Skin Temperature: Warm Skin Moisture: Dry <JACKY CHAVARRIA - Last Filed: 04/07/16 04:39> Course <JACKY CHAVARRIA - Last Filed: 04/07/16 04:39> - Diagnostic Test Radiology reviewed: Reports reviewed <JUAN JOSE FRANKEL - Last Filed: 04/07/16 05:47> - Re-evaluation Re-evalutation: 04/07/16 Patient with no evidence for pneumonia today. Patient is currently on blood thinners for PE. Patient is not having any difficult breathing. Patient states that she had a coughing spell and then had reproducible upper left back pain with movement. Reproducible tenderness to palpation. Chest x-ray with no acute findings. Patient is stable vitals. Patient will be discharged home with pain medication and is to follow-up with her doctor. Agrees with this plan. Return if any worsening or concerning symptoms. No chest pain. (JUAN JOSE FRANKEL) - Vital Signs Vital signs: Temp Pulse Resp BP Pulse Ox 97.8 F 69 16 125/78 97 04/07/16 05:09 04/07/16 05:09 04/07/16 05:09 04/07/16 05:09 04/07/16 05:09 (JACKY CHAVARRIA) (JUAN JOSE FRANKEL) Discharge <JACKY CHAVARRIA - Last Filed: 04/07/16 04:39> <JUAN JOSE FRANKEL - Last Filed: 04/07/16 05:47> - Discharge Clinical Impression: Cough Muscle strain of left upper back Qualifiers: Encounter type: initial encounter Qualified Code(s): S29.012A - Strain of muscle and tendon of back wall of thorax, initial encounter Condition: Stable Disposition: HOME, SELF-CARE Instructions: Muscle Strain ([facility]) Prescriptions: Carisoprodol [Soma] 350 mg PO DAILYP PRN #10 tablet PRN Reason: Referrals: JESSICA SALGADO MD [Primary Care Provider] - Follow up in 3-5 days Scribe Attestation: 04/07/16 05:47 I personally performed the services described in the documentation, reviewed and edited the documentation which was dictated to the scribe in my presence, and it accurately records my words and actions. (JUAN JOSE FRANKEL) Scribe Documentation - Scribe Written by Scrfabián:: Jacky Chavarria 04:27 04/07/16 acting as scribe for :: Makeda <JACKY CHAVARRIA - Last Filed: 04/07/16 04:39>
[2016-04-07] MEDS ORDERED: HYDROCODONE/ACETAMINOPHEN 5-325 MG 6 TAB/DSPK PO PRN (04:20)
[2016-04-07 05:12] VITALS: BP 125/78
== END 2016-04-07 05:13 | disposition home or self-care (01) ==
LOC: ER 03:06
DX: S29.012A Strain of muscle and tendon of back wall of thorax, initial encounter (principal); X58.XXXA Exposure to other specified factors, initial encounter; R05 Cough; I26.99 Other pulmonary embolism without acute cor pulmonale; M54.9 Dorsalgia, unspecified; R07.1 Chest pain on breathing; I10 Essential (primary) hypertension; E11.9 Type 2 diabetes mellitus without complications; Z79.01 Long term (current) use of anticoagulants; Z87.01 Personal history of pneumonia (recurrent)
CPT/HCPCS: 71020; 99283

== ENCOUNTER 2016-06-13 12:21 | Emergency (ER) | payer MEDICAID ==
--- NOTE | 2016-06-13 13:00 | ER Document Report ---
ED Medical Screen (RME) - General Stated Complaint: SHORTNESS OF BREATH Notes: Patient reports shortness of breath since Sunday. She has been off Xarelto for 2 weeks. Sent to the emergency room by her doctor because of previous PE in March. Patient restarted Xarelto yesterday. I have greeted and performed a rapid initial assessment of this patient. A comprehensive ED assessment and evaluation of the patient, analysis of test results and completion of the medical decision making process will be conducted by additional ED providers. TRAVEL OUTSIDE OF THE [place] IN LAST 30 DAYS: No - Related Data Allergies/Adverse Reactions: No Known Allergies Allergy (Verified 08/14/14 20:26) Past Medical History - Past Medical History Cardiac Medical History: Reports: Hx Hypertension Pulmonary Medical History: Reports: Hx Bronchitis Endocrine Medical History: Reports: Hx Diabetes Mellitus Type 2, Hx Hypothyroidism Renal/ Medical History: Denies: Hx Peritoneal Dialysis Psychiatric Medical History: Reports: Hx Bipolar Disorder, Hx Depression Past Surgical History: Reports: Hx Adenoidectomy, Hx Myringotomy, Hx Tonsillectomy, Hx Tubal Ligation - Immunizations Immunizations up to date: Yes Hx Diphtheria, Pertussis, Tetanus Vaccination: Yes Physical Exam - Respiratory Respiratory status: No respiratory distress Breath sounds: Normal
[2016-06-13 13:56] LABS: ALANINE AMINOTRANSFERASE 38 U/L (9-52); ALKALINE PHOSPHATASE 99 U/L (38-126); ANION GAP 15 (5-19); ASPARTATE AMINO TRANSFERASE 28 U/L (14-36); BILIRUBIN,DIRECT 0.3 mg/dL (0.0-0.4); BILIRUBIN,TOTAL 0.5 mg/dL (0.2-1.3); BLOOD UREA NITROGEN 16 mg/dL (7-20); CALCIUM 9.6 mg/dL (8.4-10.2); CARBON DIOXIDE 23 mmol/L (22-30); CHLORIDE 104 mmol/L (98-107); CREATINE KINASE 53 U/L (30-135); CREATININE RESULT 0.99 mg/dL (0.52-1.25); GLUCOSE 123 mg/dL (75-110); SODIUM 141.8 mmol/L (137-145); TOTAL PROTEIN 7.9 g/dL (6.3-8.2)
[2016-06-13 14:08] LABS: CREATINE KINASE MB 0.55 ng/mL (<4.55); TROPONIN I < 0.012 ng/mL
[2016-06-13 14:12] LABS: ABSOLUTE EOSINOPHILS # (AUTO) 0.2 10^3/uL (0.0-0.6); ABSOLUTE LYMPHOCYTES (AUTO) 2.9 10^3/uL (0.5-4.7); ABSOLUTE MONOCYTES (AUTO) 0.8 10^3/uL (0.1-1.4); ABSOLUTE NEUT (AUTO) 5.1 10^3/uL (1.7-8.2); BASOPHILS % (AUTO) 0.5 % (0-2); HEMATOCRIT 41.8 % (36.0-47.0); HEMOGLOBIN 14.4 g/dL (12.0-15.5); HGB HCT DIFFERENCE 1.4; LYMPHOCYTES % (AUTO) 32.8 % (13-45); MEAN CORPUSCULAR HEMOGLOBIN 30.9 pg (27.0-33.4); MEAN CORPUSCULAR HGB CONC 34.5 g/dL (32.0-36.0); MEAN CORPUSCULAR VOLUME 90 fl (80-97); MONOCYTES % (AUTO) 8.5 % (3-13); RED BLOOD COUNT 4.67 10^6/uL (3.72-5.28); RED CELL DISTRIBUTION WIDTH 13.4 % (11.5-14.0); SEGMENTED NEUTROPHILS % (AUTO) 56.2 % (42-78)
--- NOTE | 2016-06-13 20:03 | ER Document Report ---
ED Respiratory Problem - General Chief Complaint: Shortness Of Breath Stated Complaint: SHORTNESS OF BREATH Time seen by provider: 19:59 Mode of Arrival: Ambulatory Information source: Patient TRAVEL OUTSIDE OF THE [place] IN LAST 30 DAYS: No - HPI Patient complains to provider of: Other - Dyspnea on exertion Onset: Last week Duration: Continuous Quality of pain: Achy Severity: Mild Context: Other - History of PE Short of Breath: Mild Chest pain/discomfort: Worse with deep breaths Associated symptoms: Chest pain/discomfort Similar symptoms previously: Yes Recently seen / treated by doctor: Yes Notes: Patient is a 45-year-old female who was sent to the emergency room by her primary care provider for evaluation of chest pain and dyspnea on exertion is been going on over the past 2 weeks, patient has a history of a pulmonary embolus that was diagnosed in March of this year, she ran out of her Xarelto approximately 2 weeks ago and was unable to see her primary care provider until today who was concerned that her symptoms were consistent with recurrent PE, and center to the emergency room for evaluation, a sure reports her dyspnea on exertion has been worsening over the past 2 weeks, she is tired, and feels heaviness in her chest with shortness of breath, patient denies any recent long distance travel or immobilization, no recent surgeries, she does not take any oral control or hormone replacement - Related Data Allergies/Adverse Reactions: No Known Allergies Allergy (Verified 06/13/16 12:57) Past Medical History - General Information source: Patient - Social History Smoking Status: Unknown if Ever Smoked Chew tobacco use (# tins/day): No Frequency of alcohol use: None Drug Abuse: None Family History: Reviewed & Not Pertinent, Arthritis, CAD, DM, Hypertension, Malignancy, Thyroid Disfunction Patient has suicidal ideation: No Patient has homicidal ideation: No - Past Medical History Cardiac Medical History: Reports: Hx Hypertension Pulmonary Medical History: Reports: Hx Bronchitis Endocrine Medical History: Reports: Hx Diabetes Mellitus Type 2, Hx Hypothyroidism Renal/ Medical History: Denies: Hx Peritoneal Dialysis Psychiatric Medical History: Reports: Hx Bipolar Disorder, Hx Depression Past Surgical History: Reports: Hx Adenoidectomy, Hx Myringotomy, Hx Tonsillectomy, Hx Tubal Ligation - Immunizations Immunizations up to date: Yes Hx Diphtheria, Pertussis, Tetanus Vaccination: Yes Review of Systems - Review of Systems Constitutional: No symptoms reported EENT: No symptoms reported Cardiovascular: See HPI Respiratory: See HPI Gastrointestinal: No symptoms reported Genitourinary: No symptoms reported Female Genitourinary: No symptoms reported Musculoskeletal: No symptoms reported Skin: No symptoms reported Hematologic/Lymphatic: No symptoms reported Neurological/Psychological: No symptoms reported -: Yes All other systems reviewed and negative Physical Exam - Vital signs Vitals: Temp Pulse Resp BP Pulse Ox 97.4 F 66 24 H 139/99 H 99 06/13/16 12:57 06/13/16 12:57 06/13/16 12:57 06/13/16 12:57 06/13/16 12:57 Interpretation: Tachypneic - General General appearance: Appears well, Alert - HEENT Head: Normocephalic, Atraumatic Eyes: Normal Pupils: PERRL - Respiratory Respiratory status: No respiratory distress Chest status: Nontender Breath sounds: Normal Chest palpation: Normal - Cardiovascular Rhythm: Regular Heart sounds: Normal auscultation Murmur: No - Abdominal Inspection: Morbidly Obese Distension: No distension Bowel sounds: Normal Tenderness: Nontender Organomegaly: No organomegaly - Back Back: Normal, Nontender - Extremities General upper extremity: Normal inspection, Nontender, Normal color, Normal ROM , Normal temperature General lower extremity: Normal inspection, Nontender, Normal color, Normal ROM , Normal temperature, Normal weight bearing. No: Cory's sign - Neurological Neuro grossly intact: Yes Cognition: Normal Orientation: AAOx4 [place] Coma Scale Eye Opening: Spontaneous [place] Coma Scale Verbal: Oriented [place] Coma Scale Motor: Obeys Commands [place] Coma Scale Total: 15 Speech: Normal Motor strength normal: LUE, RUE, LLE, RLE Sensory: Normal - Psychological Associated symptoms: Normal affect, Normal mood - Skin Skin Temperature: Warm Skin Moisture: Dry Skin Color: Normal Course - Re-evaluation Re-evalutation: 06/13/16 21:46 Patient was briefly discussed with the hospitalist, regarding CTA findings, since patient's pulmonary emboli appear to be chronic and persistent since March with some resolution on the left side, he recommends patient continue on Xarelto as this is the drug of choice for treatment of pulmonary emboli Lab and imaging findings were discussed with patient at bedside, she does continue to have subsegmental pulmonary emboli on the right, however the previously noted one on the left are resolved, therefore she was advised to continue taking her Xarelto 20 mg daily, she was provided with a prescription with 6 refills so that she does not run out anytime soon, advised to follow-up with her primary care provider or return if symptoms worsen, patient acknowledges understanding and agreement with this plan - Vital Signs Vital signs: Temp Pulse Resp BP Pulse Ox 97.4 F 66 24 H 139/99 H 99 06/13/16 12:57 06/13/16 12:57 06/13/16 12:57 06/13/16 12:57 06/13/16 12:57 - Laboratory Result Diagrams: 06/13/16 13:05 06/13/16 13:05 Laboratory results interpreted by me: 06/13/16 13:05 Glucose 123 H - Diagnostic Test Radiology reviewed: Image reviewed, Reports reviewed - EKG Interpretation by Me EKG shows normal: Sinus rhythm Rate: Normal Rhythm: NSR When compared to previous EKG there are: No significant change Discharge - Discharge Clinical Impression: Chronic pulmonary embolism Qualifiers: Pulmonary embolism type: other Acute cor pulmonale presence: without acute cor pulmonale Qualified Code(s): I27.82 - Chronic pulmonary embolism Condition: Stable Disposition: HOME, SELF-CARE Additional Instructions: Follow up with your primary care provider in one to 2 days. Return to the emergency room immediately if symptoms worsen or any additional concerns. Prescriptions: Rivaroxaban [Xarelto] 20 mg PO DAILY #30 tablet
--- NOTE | 2016-06-13 20:26 | EKG REPORT ---
SEVERITY:- ABNORMAL ECG - SINUS RHYTHM NONSPECIFIC INTRAVENTRICULAR CONDUCTION DELAY PROBABLE INFERIOR INFARCT, OLD : Confirmed by: Lynette Boswell 13-Jun-2016 20:25:31
[2016-06-13] MEDS ORDERED: ACETAMINOPHEN 325 MG TABLET PO ONE (21:44)
[2016-06-13 22:13] VITALS: BP 127/56
== END 2016-06-13 22:12 | disposition home or self-care (01) ==
LOC: ER 12:21
DX: I27.82 Chronic pulmonary embolism (principal); T45.516A Underdosing of anticoagulants, initial encounter; Z91.14 Patient's other noncompliance with medication regimen; R06.09 Other forms of dyspnea; R53.83 Other fatigue; R06.02 Shortness of breath; R09.89 Other specified symptoms and signs involving the circulatory and respiratory systems; I10 Essential (primary) hypertension; E11.9 Type 2 diabetes mellitus without complications
CPT/HCPCS: 93005; 99285; 36415; 82553; 82550; 84702; 85025; 80053; 84484; 71275; 93010; J3490

== ENCOUNTER 2017-03-29 07:14 | Emergency (ER) | payer MEDICAID ==
[2017-03-29 07:21] VITALS: BP 135/89
[2017-03-29] MEDS ORDERED: CYCLOBENZAPRINE HCL 10 MG TABLET PO ONE (07:54)
[2017-03-29] MEDS ORDERED: ACETAMINOPHEN 325 MG TABLET PO ONE (07:55)
--- NOTE | 2017-03-29 07:59 | ER Document Report ---
ED Medical Screen (RME) - General Chief Complaint: Back Pain Stated Complaint: BACK PAIN TRAVEL OUTSIDE OF THE [place] IN LAST 30 DAYS: No - HPI Notes: A 6-year-old female presents today with complaint water jumped on her back while she was laying on her stomach. Denies any head trauma or change in level of consciousness. Denies any issues with bladder urinary dysfunction. Denies saddle anesthesia. Eating and drinking without issues. Has tried over-the- counter ibuprofen and Tylenol with some relief. Reports recent frequency and urgency with urination. Denies any fevers or chills. Denies any chest pain, shortness of breath, nausea, vomiting, blurred vision, double vision, abdominal pain, pelvic pain or vaginal pain. Denies any numbness or tingling down bilateral lower extremities. Able to bear full weight. Pain is 6 out of 10, throbbing aching. She states she might have "pulled muscle" 03/29/17 07:55 - Related Data Allergies/Adverse Reactions: No Known Allergies Allergy (Verified 06/13/16 12:57) Past Medical History - General Information source: Patient - Social History Family history: None - Past Medical History Cardiac Medical History: Reports: Hx Hypercholesterolemia, Hx Hypertension Pulmonary Medical History: Reports: Hx Bronchitis Endocrine Medical History: Reports: Hx Diabetes Mellitus Type 2, Hx Hypothyroidism Renal/ Medical History: Denies: Hx Peritoneal Dialysis Psychiatric Medical History: Reports: Hx Bipolar Disorder, Hx Depression Past Surgical History: Reports: Hx Adenoidectomy, Hx Myringotomy, Hx Tonsillectomy, Hx Tubal Ligation - Immunizations Immunizations up to date: Yes Hx Diphtheria, Pertussis, Tetanus Vaccination: Yes Review of Systems - Review of Systems Constitutional: No symptoms reported EENT: No symptoms reported Cardiovascular: No symptoms reported Respiratory: No symptoms reported Gastrointestinal: No symptoms reported Genitourinary: See HPI Female Genitourinary: No symptoms reported Musculoskeletal: See HPI Skin: No symptoms reported Hematologic/Lymphatic: No symptoms reported Neurological/Psychological: No symptoms reported -: Yes All other systems reviewed and negative Physical Exam - Vital signs Vitals: Temp Pulse Resp BP Pulse Ox 97.9 F 74 16 135/89 H 98 03/29/17 07:20 03/29/17 07:20 03/29/17 07:20 03/29/17 07:20 03/29/17 07:20 - Notes Notes: PHYSICAL EXAMINATION: GENERAL: Well-appearing, well-nourished and in no acute distress. HEAD: Atraumatic, normocephalic. EYES: Pupils equal round and reactive to light, extraocular movements intact, conjunctiva are normal. ENT: Nares patent, oropharynx clear without exudates. Moist mucous membranes. NECK: Normal range of motion, supple without lymphadenopathy LUNGS: Breath sounds clear to auscultation bilaterally and equal. No wheezes rales or rhonchi. HEART: Regular rate and rhythm without murmurs ABDOMEN: Soft, nontender, nondistended abdomen. No guarding, no rebound. No masses appreciated. Female : deferred Musculoskeletal: Normal range of motion, no pitting or edema. No cyanosis. straight leg test negative. Pain with flexion and extension at 30 degrees. Normal hip rotation. DTR +2 in BLE equally. Normal motor and sensory function. Distal pulses + 2 BLE equally. Noted paraspinal tenderness near L2 and L3. Noted spinal tenderness at T9-T10 . No CVA tenderness bilaterally. Femoral pulses + 2 bilaterally and equally. No abrasions, scars, lacerations, ecchymosis of any recent trauma. NEUROLOGICAL: Cranial nerves grossly intact. Normal speech, normal gait. Normal sensory, motor exams PSYCH: Normal mood, normal affect. SKIN: Warm, Dry, normal turgor, no rashes or lesions noted. Course - Re-evaluation Re-evalutation: 03/29/17 07:58 Patient medicated with Flexeril and Tylenol. Will obtain imaging of lumbar and thoracic spine. Patient is agreeable plan of care and is awaiting imaging. 03/29/17 09:28 Rechecked the patient who is resting comfortably. On re-exam, patient is symptomatically improved. Discussed the results of the labs/radiology as well as the diagnosis at great length. Thoracicand lumbar x-ray and it showed dorsal spondylosis and lumbar spondylosis along with DJD at L5 -S1. discussed the need to return to the ER for any new or worsening sx. Patient understands to take the Rx as directed. All questions answered. Patient comfortable with the decision to go home. After performing a Medical Screening Examination, I estimate there is LOW risk for EXPANDING OR RUPTURED ABDOMINAL AORTIC ANEURYSM, CAUDA EQUINA SYNDROME, EPIDURAL MASS LESION, or HERNIATED DISK CAUSING SEVERE SPINAL STENOSIS, thus I consider the discharge disposition reasonable. I have reevaluated this patient multiple times and no significant life threatening changes are noted. The patient and I have discussed the diagnosis and risks, and we agree with discharging home and close follow-up. We also discussed returning to the Emergency Department immediately if new or worsening symptoms occur with the understanding that symptoms and presentations can change. We have discussed the symptoms which are most concerning (e.g., saddle anesthesia, urinary or bowel incontinence or retention, changing or worsening pain) that necessitate immediate return. 03/29/17 09:32 03/29/17 09:32 - Vital Signs Vital signs: Temp Pulse Resp BP Pulse Ox 97.9 F 74 16 135/89 H 98 03/29/17 07:20 03/29/17 07:20 03/29/17 07:20 03/29/17 07:20 03/29/17 07:20 - Laboratory Laboratory results interpreted by me: 03/29/17 07:56 Ur Leukocyte Esterase SMALL H Doctor's Discharge - Discharge Clinical Impression: Acute mid and lower back sprain, Cystitis Disposition: HOME, SELF-CARE Instructions: Low Back Pain ([facility]), Muscle Strain ([facility]), Urinary Tract Infection ([facility]) Additional Instructions: follow up document design specialist within 3 days. increase oral fluids. take antibiotic as directed. follow up in 1 week for repeat urinalysis. Take flexeril as needed for muscle spasm, do no drive, operate heavy machinery or drink alcohol while taking medication. advised to return to the ER if any signs or symptoms became worse. Take [id number] Motrin and Tylenol as needed for any fevers or pain. Follow up with primary care within 1-2 days. All questions and concerns answered by this provider. Patient/family states would follow plan of care and agreed to plan of care. Patient was discharged home and off unit without incident. Please excuse any errors in this document was done by dragon dictation. Return immediately for any new or worsening symptoms. t. Prescriptions: Cyclobenzaprine HCl [Flexeril 10 mg Tablet] 10 mg PO TIDP PRN #9 tab PRN Reason: Nitrofurantoin Monohyd/M-Cryst [Macrobid 100 mg Capsule] 1 tab PO BID #10 capsule
[2017-03-29 08:21] LABS: APPEARANCE,URINE CLEAR; BILIRUBIN,URINE NEGATIVE (NEGATIVE); COLOR,URINE YELLOW; GLUCOSE, URINE NEGATIVE (NEGATIVE); KETONES,URINE NEGATIVE (NEGATIVE); LEUKOCYTE ESTERASE,URINE SMALL (NEGATIVE); NITRITE,URINE NEGATIVE (NEGATIVE); PROTEIN,URINE NEGATIVE (NEGATIVE); UROBILINOGEN,URINE NEGATIVE mg/dL (<2.0)
--- NOTE | 2017-03-29 08:41 | RADIOLOGY REPORT (SQ) ---
EXAM DESCRIPTION: L SPINE WHOLE COMPLETED DATE/TIME: 03/29/2017 8:22 am REASON FOR STUDY: daugher jumped on back x 2 days ago. +pain COMPARISON: None. NUMBER OF VIEWS: Five views including obliques. TECHNIQUE: AP, lateral, oblique, and sacral radiographic images acquired of the lumbar spine. LIMITATIONS: None. FINDINGS: MINERALIZATION: Normal. SEGMENTATION: 5 lumbar type vertebra with false ribs on L1. Lumbarization S1 segment. ALIGNMENT: Normal. VERTEBRAE: Maintained height. No fracture or worrisome bone lesion. DISCS: Degenerative disc disease at L5-S1. POSTERIOR ELEMENTS: Pedicles and facets are intact. No pars defect or posterior arch defects. HARDWARE: None in the spine. PARASPINAL SOFT TISSUES: Normal. PELVIS: Intact as visualized. There is narrowing of the left hip joint consistent with degenerative arthritis. OTHER: No other significant finding. IMPRESSION: 1. Lumbar spondylosis. Degenerative disc disease at L5-S1. TECHNICAL DOCUMENTATION: JOB ID: [id number] [employer]- All Rights Reserved
--- NOTE | 2017-03-29 08:45 | RADIOLOGY REPORT (SQ) ---
EXAM DESCRIPTION: T SPINE AP/LAT COMPLETED DATE/TIME: 03/29/2017 8:22 am REASON FOR STUDY: daughter jumped on her back x 2 days ago, + pain COMPARISON: None. NUMBER OF VIEWS: Two views. TECHNIQUE: AP and lateral radiographic images acquired of the thoracic spine. LIMITATIONS: None. FINDINGS: MINERALIZATION: Normal. ALIGNMENT: Normal. No scoliosis. VERTEBRAE: No fracture or bone lesion. Marginal osteophyte formation mid dorsal region consistent wi th dorsal spondylosis DISCS: No significant loss of height or significant narrowing. No large osteophytes. HARDWARE: None in the spine. MEDIASTINUM AND SOFT TISSUES: Normal heart size and aortic contour. No soft tissue abnormality. VISUALIZED LUNG MELENDEZ: Clear. OTHER: No other significant finding. IMPRESSION: Dorsal spondylosis. TECHNICAL DOCUMENTATION: JOB ID: [id number] SC-[id number] 2010 [employer]- All Rights Reserved
== END 2017-03-29 09:38 | disposition home or self-care (01) ==
LOC: ER 07:14
DX: N30.90 Cystitis, unspecified without hematuria (principal); S33.5XXA Sprain of ligaments of lumbar spine, initial encounter; S23.3XXA Sprain of ligaments of thoracic spine, initial encounter; X58.XXXA Exposure to other specified factors, initial encounter; E11.9 Type 2 diabetes mellitus without complications; E78.00 Pure hypercholesterolemia, unspecified; I10 Essential (primary) hypertension; E03.9 Hypothyroidism, unspecified; Z98.51 Tubal ligation status
CPT/HCPCS: 99283; 87086; 81001; 72110; 72070; J3490 ×2

== ENCOUNTER 2017-10-22 20:54 | Emergency (ER) | payer MEDICAID ==
[2017-10-22] MEDS ORDERED: ASPIRIN 81 MG TABLET, CHEWABLE PO ONE (22:13)
--- NOTE | 2017-10-22 22:26 | ER Document Report ---
ED Medical Screen (RME) - General Chief Complaint: Breathing Difficulty Stated Complaint: SHORTNESS OF BREATH/SWELLING Time Seen by Provider: 10/22/17 22:10 Mode of Arrival: Ambulatory Information source: Patient Notes: Patient is a 47-year-old female who presents with chief complaint of shortness of breath, chest tightness and left lower extremity swelling. Patient reports history of pulmonary embolism several years ago. Patient denies currently taking any blood thinners. Exam: Significant swelling to left lower extremity in comparison with right. I have greeted and performed a rapid initial assessment of this patient. A comprehensive ED assessment and evaluation of the patient, analysis of test results and completion of the medical decision making process will be conducted by additional ED providers. Dictation of this chart was performed using voice recognition software; therefore, there may be some unintended grammatical errors. TRAVEL OUTSIDE OF THE [place] IN LAST 30 DAYS: No - Related Data Allergies/Adverse Reactions: No Known Allergies Allergy (Verified 06/13/16 12:57) Past Medical History - Social History Frequency of alcohol use: None Drug Abuse: None Family history: None - Past Medical History Cardiac Medical History: Reports: Hx Hypercholesterolemia, Hx Hypertension Pulmonary Medical History: Reports: Hx Bronchitis Endocrine Medical History: Reports: Hx Diabetes Mellitus Type 2, Hx Hypothyroidism Renal/ Medical History: Denies: Hx Peritoneal Dialysis Psychiatric Medical History: Reports: Hx Bipolar Disorder, Hx Depression Past Surgical History: Reports: Hx Adenoidectomy, Hx Myringotomy, Hx Tonsillectomy, Hx Tubal Ligation - Immunizations Immunizations up to date: Yes Hx Diphtheria, Pertussis, Tetanus Vaccination: Yes Physical Exam - Vital signs Vitals: Temp Pulse Resp BP Pulse Ox 98.1 F 72 18 148/81 H 99 10/22/17 21:09 10/22/17 21:09 10/22/17 21:09 10/22/17 21:09 10/22/17 21:09 Course - Vital Signs Vital signs: Temp Pulse Resp BP Pulse Ox 98.1 F 72 18 148/81 H 99 10/22/17 21:09 10/22/17 21:09 10/22/17 21:09 10/22/17 21:09 10/22/17 21:09 Doctor's Discharge - Discharge Referrals: JC REEVES MD [Primary Care Provider] - Follow up as needed
--- NOTE | 2017-10-22 22:43 | RADIOLOGY REPORT (SQ) ---
EXAM DESCRIPTION: CHEST SINGLE VIEW COMPLETED DATE/TIME: 10/22/2017 10:27 pm REASON FOR STUDY: chest pain COMPARISON: 04/07/2016 EXAM PARAMETERS: NUMBER OF VIEWS: One view. TECHNIQUE: Single frontal radiographic view of the chest acquired. RADIATION DOSE: NA LIMITATIONS: None. FINDINGS: LUNGS AND PLEURA: No opacities, masses or pneumothorax. No pleural effusion. MEDIASTINUM AND HILAR STRUCTURES: No masses. Contour normal. HEART AND VASCULAR STRUCTURES: Heart normal in size. Normal vasculature. BONES: No acute findings. HARDWARE: None in the chest. OTHER: No other significant finding. IMPRESSION: NO ACUTE RADIOGRAPHIC FINDING IN THE CHEST. TECHNICAL DOCUMENTATION: JOB ID: [id number] [employer]- All Rights Reserved Reading location - IP/workstation name: [email or web address]
[2017-10-23 00:16] LABS: ABSOLUTE BASOPHILS # (AUTO) 0.1 10^3/uL (0.0-0.2); ABSOLUTE EOSINOPHILS # (AUTO) 0.2 10^3/uL (0.0-0.6); ABSOLUTE MONOCYTES (AUTO) 0.7 10^3/uL (0.1-1.4); ABSOLUTE NEUT (AUTO) 3.9 10^3/uL (1.7-8.2); HEMATOCRIT 39.3 % (36.0-47.0); HEMOGLOBIN 13.3 g/dL (12.0-15.5); LYMPHOCYTES % (AUTO) 38.3 % (13-45); MEAN CORPUSCULAR HEMOGLOBIN 30.3 pg (27.0-33.4); MEAN CORPUSCULAR HGB CONC 33.9 g/dL (32.0-36.0); MEAN CORPUSCULAR VOLUME 90 fl (80-97); MONOCYTES % (AUTO) 8.6 % (3-13); PLATELET COUNT 152 10^3/uL (150-450); RED BLOOD COUNT 4.39 10^6/uL (3.72-5.28); RED CELL DISTRIBUTION WIDTH 14.1 % (11.5-14.0); SEGMENTED NEUTROPHILS % (AUTO) 50.1 % (42-78); TOTAL CELLS COUNTED % (AUTO) 100 %; WHITE BLOOD COUNT 7.9 10^3/uL (4.0-10.5)
[2017-10-23 00:24] LABS: INTERNATIONAL RATION (INR) 0.93; PARTIAL THROMBOPLASTIN TIME 27.7 SEC (23.5-35.8); PROTHROMBIN TIME 12.9 SEC (11.4-15.4)
[2017-10-23 00:29] LABS: ALANINE AMINOTRANSFERASE 36 U/L (9-52); ALBUMIN 3.7 g/dL (3.5-5.0); ALKALINE PHOSPHATASE 106 U/L (38-126); ANION GAP 10 (5-19); ASPARTATE AMINO TRANSFERASE 26 U/L (14-36); BILIRUBIN,DIRECT 0.3 mg/dL (0.0-0.4); BILIRUBIN,TOTAL 0.4 mg/dL (0.2-1.3); BLOOD UREA NITROGEN 19 mg/dL (7-20); CALCIUM 9.3 mg/dL (8.4-10.2); CARBON DIOXIDE 28 mmol/L (22-30); CHLORIDE 104 mmol/L (98-107); CREATINE KINASE 44 U/L (30-135); GLUCOSE 144 mg/dL (75-110); POTASSIUM 3.9 mmol/L (3.6-5.0); SODIUM 142.2 mmol/L (137-145); TOTAL PROTEIN 7.2 g/dL (6.3-8.2)
[2017-10-23 00:41] LABS: TROPONIN I < 0.012 ng/mL
--- NOTE | 2017-10-23 03:26 | ER Document Report ---
ED General - General Mode of Arrival: Ambulatory TRAVEL OUTSIDE OF THE [place] IN LAST 30 DAYS: No <VIOLET THAPA - Last Filed: 10/23/17 07:25> <ANNMARIE ENRIQUEZ - Last Filed: 10/23/17 09:53> - General Chief Complaint: Breathing Difficulty Stated Complaint: SHORTNESS OF BREATH/SWELLING Time Seen by Provider: 10/22/17 22:10 Notes: Patient is a pleasant 47-year-old female with a previous history of PE. She presents with several days of leg swelling in both legs is worse on the left as well as some difficulty breathing. Some chest tightness. No fevers. No vomiting. No diarrhea. 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 She was taken off anticoagulation in January of last year. No recent surgeries. No other complaints at this time. No hemoptysis. (VIOLET THAPA) - Related Data Allergies/Adverse Reactions: No Known Allergies Allergy (Verified 10/23/17 08:27) Past Medical History - General Information source: Patient - Social History Smoking Status: Never Smoker Frequency of alcohol use: None Drug Abuse: None Family History: Reviewed & Not Pertinent, Arthritis, CAD, DM, Hypertension, Malignancy, Thyroid Disfunction Patient has suicidal ideation: No Patient has homicidal ideation: No - Past Medical History Cardiac Medical History: Reports: Hx Hypercholesterolemia, Hx Hypertension Pulmonary Medical History: Reports: Hx Bronchitis Endocrine Medical History: Reports: Hx Diabetes Mellitus Type 2, Hx Hypothyroidism Renal/ Medical History: Denies: Hx Peritoneal Dialysis Psychiatric Medical History: Reports: Hx Bipolar Disorder, Hx Depression Past Surgical History: Reports: Hx Adenoidectomy, Hx Myringotomy, Hx Tonsillectomy, Hx Tubal Ligation - Immunizations Immunizations up to date: Yes Hx Diphtheria, Pertussis, Tetanus Vaccination: Yes <VIOLET THAPA - Last Filed: 10/23/17 07:25> Review of Systems <VIOLET THAPA - Last Filed: 10/23/17 07:25> <ANNMARIE ENRIQUEZ - Last Filed: 10/23/17 09:53> - Review of Systems Notes: My Normal Review Basic REVIEW OF SYSTEMS: CONSTITUTIONAL : Denies fever, chills, or sweats. Denies recent illness. EENT: Denies eye, ear, throat, or mouth pain or symptoms. Denies nasal or sinus congestion. CARDIOVASCULAR: Tightness RESPIRATORY: Difficulty breathing GASTROINTESTINAL: Denies abdominal pain. Denies nausea, vomiting, or diarrhea. MUSCULOSKELETAL: Leg pain and swelling SKIN: Denies rash or skin lesions. HEMATOLOGIC : Denies easy bruising or bleeding. LYMPHATIC: Swelling NEUROLOGICAL: Denies altered mental status or loss of consciousness. Denies headache. Denies weakness or paralysis or loss of use of either side. Denies problems with gait or speech. Denies sensory or motor loss. PSYCHIATRIC: Denies anxiety or stress or depression. ALL OTHER SYSTEMS REVIEWED AND NEGATIVE. (VIOLET THAPA) Physical Exam <VIOLET THAPA - Last Filed: 10/23/17 07:25> <ANNMARIE ENRIQUEZ - Last Filed: 10/23/17 09:53> - Vital signs Vitals: Temp Pulse Resp BP Pulse Ox 98.1 F 72 18 148/81 H 99 10/22/17 21:09 10/22/17 21:09 10/22/17 21:09 10/22/17 21:09 10/22/17 21:09 - Notes Notes: General Appearance: Well nourished, alert, cooperative, no acute distress, no obvious discomfort. Well appearing. Vitals: reviewed, See vital signs table. Head: no swelling or tenderness to the head Eyes: PERRL, EOMI, Conjuctiva clear Mouth: No decreasd moisture Lungs: No wheezing, No rales, No rhonci, No accessory muscle use, good air exchange bilaterally. Heart: Normal rate, Regular rythm, No murmur, no rub Abdomen: Normal BS, soft, No rigidity, No abdominal tenderness, No guarding, no rebound, no abdominal masses, no organomegaly Extremities: strength 5/5 in all extremities, good pulses in all extremities, no swelling or tenderness in the extremities, lower extremities are large and swollen and worse in the left. Mild pitting edema on the left lower extremity. Very small amount of erythema.. Skin: warm, dry, appropriate color, no rash Neuro: speech clear, oriented x 3, normal affect, responds appropriately to questions. (VIOLET THAPA) Course - Laboratory Result Diagrams: 10/23/17 00:03 10/23/17 00:03 <VIOLET THAPA - Last Filed: 10/23/17 07:25> - Laboratory Result Diagrams: 10/23/17 00:03 10/23/17 00:03 <ANNMARIE ENRIQUEZ - Last Filed: 10/23/17 09:53> - Re-evaluation Re-evalutation: 10/23/17 03:25 EKG is reviewed and interpreted by me. EKG shows sinus rhythm with rate of [address] segment elevation or depression. No ischemic T-wave inversions. [place] interval, QRS duration, QTc intervals are within normal range. Old EKG for comparison is from June 13, 2016. 10/23/17 06:[address] PE study does not show evidence of central pulmonary emboli. The read says I cannot rule out subsegmental pulmonary emboli because of the contrast bolus timing. I have ordered a d-dimer. If her venous Doppler and d-dimer negative then no further studies will be needed regards to ruling out PE. Her d-dimer for DVT study is positive then she will need a VQ scan. Some of her edema could be related to her being obese and overweight. If all her studies are negative and she will need compression hose and referral to her doctor for close follow-up. (VIOLET THAPA) 10/23/17 09:51 The VQ scan was unable to be performed due to her weight limitations. I am giving her a shot of Lovenox at this time. Will advise her to return in 24 hours for repeat CTA of the chest. (ANNMARIE ENRIQUEZ) - Vital Signs Vital signs: Temp Pulse Resp BP Pulse Ox 97.6 F 72 12 145/89 H 98 10/23/17 08:25 10/22/17 21:09 10/23/17 08:25 10/23/17 08:25 10/23/17 08:25 - Laboratory Laboratory results interpreted by me: 10/23/17 10/23/17 10/23/17 00:03 00:03 00:03 RDW 14.1 H D-Dimer 0.88 H Glucose 144 H Discharge <VIOLET THAPA - Last Filed: 10/23/17 07:25> <ANNMARIE ENRIQUEZ - Last Filed: 10/23/17 09:53> - Discharge Clinical Impression: Shortness of breath Condition: Good Disposition: HOME, SELF-CARE Instructions: Dyspnea, Nonspecific ([facility]) Additional Instructions: Please return in 24 hours for repeat imaging study of your chest to make sure that you did not have a blood clot. We have given you blood thinners at this time. It will be very important that you follow these instructions and return tomorrow morning. Prescriptions: Cephalexin Monohydrate [Keflex 500 mg Capsule] 500 mg PO QID #28 capsule Referrals: JC REEVES MD [Primary Care Provider] - Follow up as needed
[2017-10-23] MEDS ORDERED: NORMAL SALINE 500 ML IV ONE (03:30)
--- NOTE | 2017-10-23 05:43 | RADIOLOGY REPORT (SQ) ---
EXAM DESCRIPTION: CT CHEST ANGIOGRAPHY WITH IV CONTRAST COMPLETED DATE/TME: 10/23/2017 03:29 CLINICAL HISTORY: Dyspnea. History of pulmonary embolus. COMPARISON: 06/13/2016 TECHNIQUE: CTA of the chest obtained following the uncomplicated intravenous administration of 100 mL Omnipaque 350. 3-D/MIP reformatted images of the chest available for evaluation. DLP: 1679.81 mGycm FINDINGS: Chest: Pulmonary arteries: Contrast bolus is suboptimal. No filling defects identified in the pulmonary arteries to suggest pulmonary embolus. Suboptimal evaluation of the segmental and subsegmental pulmonary arterial branches due to contrast bolus timing. Thyroid:No abnormalities of the visualized thyroid. Great Vessels:Great vessels have normal anatomic configuration. Thoracic Aorta:No abnormalities of the thoracic aorta identified. Heart:No cardiomegaly, significant pericardial effusion, or coronary artery atherosclerosis Lymph Nodes:No enlarged mediastinal lymph nodes identified. Esophagus:No abnormalities of the esophagus identified. Other:No additional findings. Lungs:No alveolar or interstitial airspace opacities identified. Pleura:No pleural effusion or pneumothorax. Trachea/Airways:No abnormalities of the visualized trachea or airways. Bones:No destructive osseous lesions. Mild endplate spondylosis. Upper Abdomen:Limited images of the upper abdomen demonstrate no definite abnormalities of visualized portions of the spleen or adrenal glands. Decreased density throughout the liver. IMPRESSION: 1. No acute central pulmonary embolus identified. Suboptimal evaluation of the segmental and subsegmental pulmonary arterial branches due to contrast bolus timing. 2. Hepatic steatosis. This exam was performed according to our departmental dose-optimization program, which includes automated exposure control, adjustment of the mA and/or kV according to patient size and/or use of iterative reconstruction technique.
[2017-10-23] MEDS ORDERED: ENOXAPARIN SODIUM INJ 150 MG/1 ML DISP.SYRIN SUBCUT SCH (10:00)
[2017-10-23 10:15] VITALS: BP 114/78
--- NOTE | 2017-10-23 13:45 | EKG REPORT ---
SEVERITY:- NORMAL ECG - SINUS RHYTHM : Confirmed by: Joid Jaramillo MD 23-Oct-2017 13:45:17
--- NOTE | 2017-10-23 15:51 | RADIOLOGY REPORT (SQ) ---
EXAM DESCRIPTION: VENOUS BILATERAL LOWER COMPLETED DATE/TIME: 10/23/2017 9:48 am REASON FOR STUDY: leg swelling COMPARISON: None. TECHNIQUE: Dynamic and static cross scale and color images acquired of both lower extremity venous sy stems. Selected spectral images acquired with additional compression and augmentation maneuvers. Imag es stored on PACS. LIMITATIONS: None. FINDINGS: RIGHT LEG COMMON FEMORAL AND FEMORAL: Normal phasicity, compression and augmentation. No visualized echogenic m aterial on cross scale. No defects on color images. POPLITEAL: Normal compression and augmentation. No visualized echogenic material on cross scale. No de fects on color images. CALF VESSELS: Normal compression and augmentation. No visualized echogenic material on cross scale. No defects on color image. GSV AND SSV: Normal compression. No visualized echogenic material on cross scale. No defects on color images. ANY DEEP VENOUS INSUFFICIENCY: Not evaluated. ANY EVIDENCE OF POPLITEAL CYST: No. OTHER: No other significant finding. LEFT LEG COMMON FEMORAL AND FEMORAL: Normal phasicity, compression and augmentation. No visualized echogenic m aterial on cross scale. No defects on color images. POPLITEAL: Normal compression and augmentation. No visualized echogenic material on cross scale. No de fects on color images. CALF VESSELS: Normal compression and augmentation. No visualized echogenic material on cross scale. No defects on color images. GSV AND SSV: Normal compression. No visualized echogenic material on cross scale. No defects on color images. ANY DEEP VENOUS INSUFFICIENCY: Not evaluated. ANY EVIDENCE POPLITEAL CYST: No. OTHER: No other significant finding. IMPRESSION: NO EVIDENCE DVT OR SVT IN EITHER LEG. TECHNICAL DOCUMENTATION: JOB ID: [id number] [employer]- All Rights Reserved Reading location - IP/workstation name: [email or web address]
== END 2017-10-23 10:15 | disposition home or self-care (01) ==
LOC: ER 20:54
DX: R06.02 Shortness of breath (principal); E78.00 Pure hypercholesterolemia, unspecified; I10 Essential (primary) hypertension; E11.9 Type 2 diabetes mellitus without complications; E03.9 Hypothyroidism, unspecified; Z86.711 Personal history of pulmonary embolism; Z98.51 Tubal ligation status
CPT/HCPCS: 93005; 99285; 96360; 96361; 36415; 82553; 82550; 85025; 85610; 85730; 80053; 84484; 85379; 93970; 71045; 71275; 93010; J3490; J7040

== ENCOUNTER → 2017-10-24 | Outpatient (CLI) | payer MEDICAID ==
--- NOTE | 2017-10-24 10:40 | RADIOLOGY REPORT (SQ) ---
EXAM DESCRIPTION: CHEST 2 VIEWS COMPLETED DATE/TIME: 10/24/2017 9:52 am REASON FOR STUDY: SOB; aborted CTA chest COMPARISON: CT angio chest 10/23/2017 AP chest 10/22/2017 EXAM PARAMETERS: NUMBER OF VIEWS: AP chest topogram from aborted CT angio chest this morning TECHNIQUE:AP chest topogram from aborted CT angio chest this morning RADIATION DOSE: NA LIMITATIONS: none FINDINGS: Patient returned for repeat CT angio chest today, as a follow-up to exam 10/23/2017, 0516 ho urs. We were unable to obtain IV access for CT angio chest this morning, multiple IV attempts were made. The CT angio chest exam 10/23/2017, 0516 hours was reviewed with Dr. Penaloza. Although the contrast bolus is not optimal, the main, right and left lobar, and proximal segmental pulmonary arteries on th e exam 10/23/2017 0516 hours demonstrates no gross acute pulmonary emboli. The topogram for CT today demonstrates mild cardiomegaly. No focal infiltrates. No hilar enlargemen t. No acute bony changes. Findings discussed with Dr. Penaloza. IMPRESSION: NO ACUTE RADIOGRAPHIC FINDING IN THE CHEST. TECHNICAL DOCUMENTATION: JOB ID: [id number] [employer]- All Rights Reserved Reading location - IP/workstation name: [email or web address]
== END ==
LOC: RAD 07:49
PROVIDERS: ATTEND Emergency Medicine
DX: R06.02 Shortness of breath (principal)
CPT/HCPCS: 71046; 82565

== ENCOUNTER → 2018-11-28 | Outpatient (CLI) | payer MEDICAID ==
--- NOTE | 2018-11-28 12:39 | RADIOLOGY REPORT (SQ) ---
EXAM DESCRIPTION: KNEE RIGHT 3 VIEWS COMPLETED DATE/TIME: 11/28/2018 12:28 pm REASON FOR STUDY: RT ANTERIOR KNEE PAIN M25.561 PAIN IN RIGHT KNEE COMPARISON: None. NUMBER OF VIEWS: Three views. TECHNIQUE: AP, lateral, and sunrise patella radiographic images acquired of the right knee. LIMITATIONS: None. FINDINGS: MINERALIZATION: Normal. BONES: No acute fracture or dislocation. No worrisome bone lesions. JOINT: There small posterior patellar osteophytes. No joint effusion. SOFT TISSUES: No soft tissue swelling. No radio-opaque foreign body. OTHER: No other significant finding. IMPRESSION: Minimal patellofemoral degenerative joint changes. TECHNICAL DOCUMENTATION: JOB ID: [id number] [employer] All Rights Reserved Reading location - IP/workstation name: [email or web address]
== END ==
LOC: OD 12:08
PROVIDERS: ATTEND Nurse Practitioner Acute Care
DX: M17.11 Unilateral primary osteoarthritis, right knee (principal); M25.561 Pain in right knee

== ENCOUNTER 2019-01-19 17:53 | Emergency (ER) | payer MEDICAID ==
--- NOTE | 2019-01-19 18:25 | ER Document Report ---
ED Medical Screen (RME) - General Chief Complaint: Dizziness Stated Complaint: DIZZY Time Seen by Provider: 01/19/19 18:24 Primary Care Provider: DIEGO NGO NP [Primary Care Provider] - Follow up as needed Mode of Arrival: Ambulatory Information source: Patient Notes: 48-year-old female presents to ED for cough and cold congestion and dizziness. She states the cough and cold been for 3 days. She states she had dizziness about 3 weeks ago and it went away and it started again last night and is more today. She is alert oriented respirations regular nonlabored speaking in full sentences. She states she is always nauseated because of the gastric sleeve but she is nauseated now also. I have greeted and performed a rapid initial assessment of this patient. A comprehensive ED assessment and evaluation of the patient, analysis of test results and completion of medical decision making process will be conducted by an additional ED providers. TRAVEL OUTSIDE OF THE [place] IN LAST 30 DAYS: No - Related Data Allergies/Adverse Reactions: No Known Allergies Allergy (Verified 01/19/19 18:21) Home Medications: synthroid. prozac. prilosec. bariatric vitamin Past Medical History - Social History Chew tobacco use (# tins/day): No Frequency of alcohol use: None Drug Abuse: None Family history: None - Past Medical History Cardiac Medical History: Reports: Hx Hypercholesterolemia, Hx Hypertension Pulmonary Medical History: Reports: Hx Bronchitis Endocrine Medical History: Reports: Hx Diabetes Mellitus Type 2, Hx Hypothyroidism Renal/ Medical History: Denies: Hx Peritoneal Dialysis Psychiatric Medical History: Reports: Hx Bipolar Disorder, Hx Depression Past Surgical History: Reports: Hx Adenoidectomy, Hx Myringotomy, Hx Tonsillectomy, Hx Tubal Ligation - Immunizations Immunizations up to date: Yes Hx Diphtheria, Pertussis, Tetanus Vaccination: Yes Physical Exam - Vital signs Vitals: Temp Pulse Resp BP Pulse Ox 97.3 F 58 L 18 128/78 H 99 01/19/19 18:06 01/19/19 18:06 01/19/19 18:06 01/19/19 18:06 01/19/19 18:06 Course - Vital Signs Vital signs: Temp Pulse Resp BP Pulse Ox 97.3 F 58 L 18 128/78 H 99 01/19/19 18:06 01/19/19 18:06 01/19/19 18:06 01/19/19 18:06 01/19/19 18:06 Doctor's Discharge - Discharge Referrals: DIEGO NGO NP [Primary Care Provider] - Follow up as needed
[2019-01-19 19:29] LABS: ABSOLUTE EOSINOPHILS # (AUTO) 0.3 10^3/uL (0.0-0.6); ABSOLUTE LYMPHOCYTES (AUTO) 2.2 10^3/uL (0.5-4.7); ABSOLUTE MONOCYTES (AUTO) 0.6 10^3/uL (0.1-1.4); ABSOLUTE NEUT (AUTO) 4.7 10^3/uL (1.7-8.2); BASOPHILS % (AUTO) 0.4 % (0-2); EOSINOPHILS % (AUTO) 3.4 % (0-6); HEMATOCRIT 45.2 % (36.0-47.0); HEMOGLOBIN 15.4 g/dL (12.0-15.5); LYMPHOCYTES % (AUTO) 28.2 % (13-45); MEAN CORPUSCULAR VOLUME 91 fl (80-97); MONOCYTES % (AUTO) 7.5 % (3-13); PLATELET COUNT 179 10^3/uL (150-450); RED BLOOD COUNT 4.97 10^6/uL (3.72-5.28); RED CELL DISTRIBUTION WIDTH 14.2 % (11.5-14.0); SEGMENTED NEUTROPHILS % (AUTO) 60.5 % (42-78); TOTAL CELLS COUNTED % (AUTO) 100 %; WHITE BLOOD COUNT 7.8 10^3/uL (4.0-10.5)
[2019-01-19 19:46] LABS: APPEARANCE,URINE SLIGHTLY-CLOUDY; BILIRUBIN,URINE NEGATIVE (NEGATIVE); COLOR,URINE AMBER; GLUCOSE, URINE NEGATIVE (NEGATIVE); KETONES,URINE NEGATIVE (NEGATIVE); PROTEIN,URINE NEGATIVE (NEGATIVE); URINE SPECIFIC GRAVITY 1.021
[2019-01-19 19:50] LABS: ALBUMIN 4.2 g/dL (3.5-5.0); ALKALINE PHOSPHATASE 89 U/L (38-126); ANION GAP 10 (5-19); ASPARTATE AMINO TRANSFERASE 41 U/L (14-36); BILIRUBIN,DIRECT 0.3 mg/dL (0.0-0.4); BLOOD UREA NITROGEN 9 mg/dL (7-20); CALCIUM 9.7 mg/dL (8.4-10.2); CARBON DIOXIDE 30 mmol/L (22-30); CHLORIDE 101 mmol/L (98-107); GLUCOSE 82 mg/dL (75-110); URINE AMPHETAMINES SCREEN NEGATIVE; URINE BARBITURATES SCREEN NEGATIVE; URINE BENZODIAZEPINES SCREEN NEGATIVE; URINE COCAINE SCREEN NEGATIVE; URINE MARIJUANA (THC) SCREEN NEGATIVE; URINE METHADONE SCREEN NEGATIVE; URINE PHENCYCLIDINE SCREEN NEGATIVE
[2019-01-19] MEDS ORDERED: ONDANSETRON 4 MG TAB.RAPDIS PO ONE (21:30)
[2019-01-19] MEDS ORDERED: AMOXICILLIN TR/POT CLAVULANATE 500-125 MG TAB PO ONE (21:30)
[2019-01-19] MEDS ORDERED: MECLIZINE HCL 25 MG TABLET PO ONE (21:30)
[2019-01-19] MEDS ORDERED: AMOXICILLIN TRIHYD 250 MG CAPSULE PO ONE (21:31)
--- NOTE | 2019-01-19 21:36 | ER Document Report ---
ED General - General Chief Complaint: Dizziness Stated Complaint: DIZZY Time Seen by Provider: 01/19/19 18:24 Primary Care Provider: ROSEMARIE VERDUGO DO [Primary Care Provider] - Follow up in 1 week Mode of Arrival: Ambulatory Notes: Patient is a 48-year-old female who presents to the emergency department with a chief complaint of dizziness and cold-like symptoms. About 3 weeks ago she felt dizzy, but did not realize why. It would come and go. She started to have cold-like symptoms 3 days ago with purulent drainage. She denies any fever. Patient also states that she has a headache in the frontal sinus area. She has a past medical history of hypothyroidism, GERD, gastric sleeve, anxiety, tubal ligation. Denies any fever, body aches, or chills. Patient does not take any allergy medicine at this time. TRAVEL OUTSIDE OF THE [place] IN LAST 30 DAYS: No - Related Data Allergies/Adverse Reactions: No Known Allergies Allergy (Verified 01/19/19 18:21) Home Medications: synthroid. prozac. prilosec. bariatric vitamin Past Medical History - General Information source: Patient - Social History Smoking Status: Never Smoker Chew tobacco use (# tins/day): No Frequency of alcohol use: None Drug Abuse: None Family History: Reviewed & Not Pertinent, Arthritis, CAD, DM, Hypertension, Malignancy, Thyroid Disfunction Patient has suicidal ideation: No Patient has homicidal ideation: No - Past Medical History Cardiac Medical History: Reports: Hx Hypercholesterolemia, Hx Hypertension Pulmonary Medical History: Reports: Hx Bronchitis Endocrine Medical History: Reports: Hx Diabetes Mellitus Type 2, Hx Hypothyroidism Renal/ Medical History: Denies: Hx Peritoneal Dialysis Psychiatric Medical History: Reports: Hx Bipolar Disorder, Hx Depression Past Surgical History: Reports: Hx Adenoidectomy, Hx Myringotomy, Hx Tonsillectomy, Hx Tubal Ligation - Immunizations Immunizations up to date: Yes Hx Diphtheria, Pertussis, Tetanus Vaccination: Yes Review of Systems - Review of Systems Notes: REVIEW OF SYSTEMS: CONSTITUTIONAL : Denies recent illness. Denies recent unintentional weight loss. Denies fever, chills, or sweats. EENT: See HPI. CARDIOVASCULAR: Denies chest pain. RESPIRATORY: Denies shortness of breath, cough, congestion, difficulty breathing, or wheezing. GASTROINTESTINAL: Denies nausea, vomiting, and diarrhea. Denies abdominal pain. Denies constipation. GENITOURINARY: Denies difficulty urinating, burning, blood in urine, urgency or frequency. MUSCULOSKELETAL: Denies neck and back pain. Denies joint pain or swelling. SKIN: Denies rash, itchiness, or lesions HEMATOLOGIC : Denies easy bruising or bleeding. LYMPHATIC: Denies swollen, painful, enlarged glands. NEUROLOGICAL: See HPI. PSYCHIATRIC: Denies stress, anxiety, alteration in sleep patterns, or depression. All other systems reviewed and negative. Physical Exam - Vital signs Vitals: Temp Pulse Resp BP Pulse Ox 97.3 F 58 L 18 128/78 H 99 01/19/19 18:06 01/19/19 18:06 01/19/19 18:06 01/19/19 18:06 01/19/19 18:06 - Notes Notes: PHYSICAL EXAMINATION: GENERAL: Appears well, healthy, well-nourished, no acute distress. HEAD: Normocephalic, atraumatic. EYES: PERRL, conjunctiva normal, all extraocular movements intact, sclera nonicteric ENT: Moist mucous membranes. Edema and erythema noted to the nasal mucosa. NECK: Supple, no noticeable swelling, redness, rash. Normal range of motion. LUNGS: Equal breath sounds bilaterally and clear to auscultation. No wheezes rales or rhonchi. CARDIOVASCULAR: S1-S2, regular rate, regular rhythm. Radial pulses 2+, normal. ABDOMEN: Normoactive bowel sounds. Soft, nontender, no guarding, no rebound tenderness, and no masses palpated. EXTREMITIES: Normal strength and range of motion, no pitting or edema. No cyanosis. NEUROLOGICAL: Moves all extremities upon command. Strength 5/5 in all extremities. PSYCH: Normal mood, normal affect. SKIN: Warm, dry. No rash, lesions, ulcerations noted. Normal skin turgor. Course - Re-evaluation Re-evalutation: Hematology is unremarkable. Chemistries are also unremarkable. hCG is negative. Patient states that she is on her menstrual cycle, hence why she has a large amount of blood in her urine. She denies any excessive vaginal bleeding. Toxicology ordered in triage is negative. Based off of patient's symptoms and physical exam, this is consistent with a sinus headache. Patient will be started on antibiotics since she has had on and off dizziness for the past few weeks. She will also be started on Flonase and cetirizine, as the patient has edema and erythema to her nasal mucosa. She will follow-up with her primary care provider. She is in agreement with this plan. Follow-up precautions were given. Verbal discharge instructions were given to the patient. They verbalized understanding. They are stable for discharge. - Vital Signs Vital signs: Temp Pulse Resp BP Pulse Ox 97.6 F 62 15 123/72 96 01/19/19 22:31 01/19/19 22:31 01/19/19 22:31 01/19/19 22:31 01/19/19 22:31 - Laboratory Result Diagrams: 01/19/19 18:38 01/19/19 18:38 Laboratory results interpreted by me: 01/19/19 01/19/19 01/19/19 18:38 18:38 18:38 RDW 14.2 H AST 41 H Urine Blood LARGE H Urine Urobilinogen 4.0 H Leukocyte Esterase Rfl TRACE H Discharge - Discharge Clinical Impression: Acute sinusitis Qualifiers: Sinusitis location: frontal Recurrence: non-recurrent Qualified Code(s): J01.10 - Acute frontal sinusitis, unspecified Condition: Stable Disposition: HOME, SELF-CARE Instructions: Antinausea Medication ([facility]), Dizziness ([facility]), Meclizine ([facility]), Vertigo ([facility]) Additional Instructions: You were seen today in the emergency department for dizziness and cold-like symptoms. You are being treated for a sinus infection. Please take all your antibiotics as prescribed. Even if you feel better, continue all your medications. You are also being given Zofran, medication for nausea. You are also being given meclizine, medication for dizziness. Please follow-up with your primary care provider in regards to this visit. Prescriptions: Meclizine HCl [Antivert 25 mg Tablet] 25 mg PO DAILYP PRN #14 tablet PRN Reason: Amox Tr/Potassium Clavulanate [Augmentin 875-125 Tablet] 1 tab PO BID 10 Days #20 tablet Fluticasone Propionate [Flonase Nasal [place] 50 Mcg/[place] 16 gm] 2 sprays NASL DAILY #1 inhaler Ondansetron [Zofran Odt 4 mg Tablet] 1 - 2 tab PO Q4H PRN #15 tab.rapdis PRN Reason: For Nausea/Vomiting Referrals: ROSEMARIE VERDUGO DO [Primary Care Provider] - Follow up in 1 week
[2019-01-19 22:32] VITALS: BP 123/72
--- NOTE | 2019-01-20 06:16 | EKG REPORT ---
SEVERITY:- ABNORMAL ECG - SINUS BRADYCARDIA NONSPECIFIC INTRAVENTRICULAR CONDUCTION DELAY NEW T INVERSION ANTERIOR LEADS, CLINICAL CORRELATION NEEDED : Confirmed by: Jerod Hughes MD 20-Jan-2019 06:15:19
== END 2019-01-19 22:31 | disposition home or self-care (01) ==
LOC: ER 17:53
DX: J01.10 Acute frontal sinusitis, unspecified (principal); R42 Dizziness and giddiness; R51 Headache; E78.00 Pure hypercholesterolemia, unspecified; I10 Essential (primary) hypertension; K21.9 Gastro-esophageal reflux disease without esophagitis; Z98.51 Tubal ligation status
CPT/HCPCS: 93005; 99284; 36415; 87086; 84703; 85025; 80053; 81001; 80307; 93010; J3490 ×2; S0119

== ENCOUNTER → 2019-09-25 | Outpatient (CLI) | payer MEDICAID ==
--- NOTE | 2019-09-25 15:39 | RADIOLOGY REPORT (SQ) ---
EXAM DESCRIPTION: C SP 4 OR 5 VIEWS IMAGES COMPLETED DATE/TIME: 09/25/2019 1:21 pm REASON FOR STUDY: PAIN IN RIGHT HIP AND NECK M54.2 CERVICALGIA COMPARISON: None. NUMBER OF VIEWS: Five views. TECHNIQUE: AP, lateral, obliques and odontoid radiographic images acquired of the cervical spine. LIMITATIONS: None. FINDINGS: MINERALIZATION: Normal. ALIGNMENT: Anatomic. VERTEBRAE: Vertebral bodies of normal height. DISCS: Disc spaces are narrowed from C3 to C6 with small marginal osteophytes. FORAMINA: No osteophytes or foraminal narrowing. LATERAL AND POSTERIOR ELEMENTS: Facets, lateral masses and spinous processes without significant find ings. HARDWARE: None in the spine. SOFT TISSUES: No masses or calcifications. Lung apices clear. OTHER: No other significant finding. IMPRESSION: Degenerative disc disease and spondylosis. No acute finding. TECHNICAL DOCUMENTATION: JOB ID: [id number] [employer]- All Rights Reserved Reading location - IP/workstation name: [email or web address]
--- NOTE | 2019-09-25 15:41 | RADIOLOGY REPORT (SQ) ---
EXAM DESCRIPTION: HIPS BILATERAL IMAGES COMPLETED DATE/TIME: 09/25/2019 1:21 pm REASON FOR STUDY: PAIN IN RIGHT HIP AND NECK M54.2 CERVICALGIA COMPARISON: None. NUMBER OF VIEWS: Two views TECHNIQUE: AP pelvis and additional frog-leg view of both hips. LIMITATIONS: None. FINDINGS: MINERALIZATION: Normal. HIPS: Mild narrowing of the hip joint spaces. Small marginal osteophytes on the femoral heads. PELVIS AND SACRUM: No acute fracture or dislocation. No worrisome bone lesions. PUBIS AND ISCHIUM: No acute fracture. LOWER LUMBAR SPINE: No significant findings as visualized. SOFT TISSUES: No findings. OTHER: No other significant finding. IMPRESSION: Mild degenerative joint disease in the hips, left more than right. TECHNICAL DOCUMENTATION: JOB ID: [id number] [employer]- All Rights Reserved Reading location - IP/workstation name: [email or web address]
== END ==
LOC: OD 12:53
PROVIDERS: ATTEND Family Medicine
DX: M54.2 Cervicalgia (principal)
CPT/HCPCS: 72050; 73522